=== PATIENT | female | born 1950 | race Hispanic/Latino ===

== ENCOUNTER 2019-09-17 10:05 | Observation (INO) | payer OTHER ==
[2019-09-16 11:15] VITALS: BP 150/72
[2019-09-17] VITALS (27 sets, daily range): BP systolic 12–169; BP diastolic 51–82
[~2019-09-17] VITALS: Ht 151.1 cm; Wt 55.7 kg
[2019-09-17] MEDS: CEFAZOLIN SODIUM 1 GM VIAL IVP SCH ×2 (05:00→14:00)
[~2019-09-17 10:05] MED LIST: AMLO5TAB9 PO; CALC-190 PO; EZET1TAB17 PO; FLUT16H NASAL; HYDR12.54 PO; LEVO75TA4 PO; MONT10TA21 PO; MULT-1192 PO; OMEP40CA13 PO; TOPI25TA42 PO; [UNRECOGNIZED DRUG - CODE] PO
[2019-09-17] MEDS ORDERED: LACTATED RINGERS 1000ML 1,000 ML IV ONE (11:25)
[2019-09-17] MEDS ORDERED: CHOL100046 PO (12:06)
[2019-09-17] MEDS ORDERED: PREG50 PO (12:09)
[2019-09-17] MEDS ORDERED: LEVO50TA6 PO (12:11)
[2019-09-17] MEDS ORDERED: GABA-529 PO (12:14)
[2019-09-17] MEDS ORDERED: LIDOCAINE PF 2% 5ML ABBOJECT ONE (13:12)
[2019-09-17] MEDS ORDERED: PROPOFOL 10 MG/ML 20ML VIAL IV ONE (13:12)
[2019-09-17] MEDS ORDERED: ONDANSETRON HCL 4 MG/2 ML VIAL ONE ×3 (13:12→18:05)
[2019-09-17] MEDS ORDERED: DEXAMETHASONE SOD PHOSPHATE 10MG/ML 1ML VIAL ONE (13:12)
[2019-09-17] MEDS ORDERED: GLYCOPYRROLATE 1 MG/5 ML SYRINGE ONE (13:13)
[2019-09-17] MEDS ORDERED: ROCURONIUM 10MG/1ML SYR 10 MG/ML ML ONE (13:13)
[2019-09-17] MEDS ORDERED: MIDAZOLAM HCL 1 MG/ML 2ML VIAL ONE (13:13)
[2019-09-17] MEDS ORDERED: NEOSTIGMINE 5MG/5ML SYR IV ONE (13:13)
[2019-09-17] MEDS ORDERED: FENTANYL CITRATE PF 50 MCG/1 ML 5ML AMP IV ONE (13:14)
[2019-09-17] MEDS ORDERED: ROPIVACAINE 0.5% 5MG/ML 30ML IJ ONE (13:16)
[2019-09-17] MEDS ORDERED: NALOXONE HCL 0.4 MG/1 ML ML ONE ×2 (15:24→16:31)
[2019-09-17] MEDS ORDERED: HYDRALAZINE HCL 20 MG/ML VIAL ONE (16:22)
[2019-09-17] MEDS ORDERED: ONDANSETRON HCL 4 MG/2 ML VIAL IVP PRN (19:45)
[2019-09-17] MEDS ORDERED: ACETAMINOPHEN-CODEINE 300/30MG TAB PO PRN (19:45)
--- NOTE | 2019-09-17 19:45 | NUR ---
REPORT GIVEN TO ARVIN CARR AT 1947, PT AAOX3 , CURRENTLY NO C/O PAIN TO RT SHOULDER. PT ABLE TO AMBULATE TO RESTROOM, VOIDED 3 TIMES. PT ABLE TO TOLERATE FLUIDS. VITALS STABLE, DRESSING TO RT SHOULDER HAS SCANT QUARTER SIZE AMOUNT OF BLOOD. NO OOZING OR HEMATOMA INCISION SITE. PT TRANSFERRED UP TO FLOOR VIA WHEEL CHAIR. AT SIDE WITH PERSONAL BELONGINGS. ON ARRIVAL PT IN PLACED IN BED, IV FLUIDS KVO, PATENT. PT STABLE AND RESTING, NO DISTRESS.
[2019-09-17] MEDS: ACETAMINOPHEN-CODEINE 300/30MG TAB PO PRN (23:43)
[2019-09-18] VITALS: BP 128/74
[2019-09-18] MEDS: ACETAMINOPHEN-CODEINE 300/30MG TAB PO PRN ×2 (03:34→10:15)
[2019-09-18 04:00] VITALS: BP 130/68
[2019-09-18] MEDS: CEFAZOLIN SODIUM 1 GM VIAL IVP SCH (04:46)
[2019-09-18 08:02] VITALS: BP 123/65
--- NOTE | 2019-09-18 11:45 | NUR ---
PT D/C HOME USING TEACH BACK TECHNIQUE RE; FOLLOW UP WITH DR MINDY LOAIZA ON 09/23/19 AT 0830 AND CALL TELEPHONE NUMNER [phone] Discharge Instructions for Open Rotator Cuff Repair You had a procedure called open rotator cuff repair. The rotator cuff consists of the muscles and tendons that surround your shoulder. The rotator cuff keeps the top of your upper arm bone (humerus) securely in the shoulder joint. Your doctor made an incision near your shoulder blade and repaired the torn muscles or tendons in your shoulder. Here are instructions to follow when caring for your arm at home. Activity Man leaning over with back straight, supporting himself on back of chair with one hand. Other arm is hanging from shoulder with arrows showing arm moving in ho-chunk. After surgery, rest your arm and relax for the rest of day. If you had general anesthesia (were put to sleep for the procedure), dont operate power tools or machinery, drink alcohol, or make any major decisions for at least 24 hours after surgery. Wear your sling, brace, or immobilizer, as directed. Dont drive a car until your doctor says its OK. And never drive while taking opioid pain medicine. Flex your wrist and wiggle your fingers often to help blood flow. Your doctor may recommend pendulum exercises after your surgery. If this recommendation is made: Hold on to the back of a chair, or lean on a tabletop with your healthy hand. Let your arm hang straight down toward the floor and use your torso to move your affected arm in a ho-chunk. First do 20 circles in one direction. Then do 20 circles in the other direction. Repeat the pendulum exercise every 2 hour(s) while you are awake. When you feel ready, increase the number of circles to 50 in each direction every 2 hour(s). Incision care Check your incision daily for redness, tenderness, or drainage. Dont soak in a bathtub, hot tub, or pool until your doctor says its OK. Wait several days after your surgery to start showering, or until your doctor says it's OK. Then shower as needed. Carefully wash your incision with soap and water. Gently pat it dry. Dont rub the incision, or apply creams or lotions. Your incision was closed using sutures, migdalia, or strips of tape. If you have sutures or migdalia, they may need to be removed up to 2 to 3 weeks after surgery. Allow the strips of tape to fall off on their own. Home care Use pain medicine as directed by your doctor. Apply an ice pack or bag of frozen peasor something similarwrapped in a thin towel on your shoulder to reduce swelling for the first 48 hours. Leave the ice pack on for 20 minutes; then take it off for 20 minutes. Repeat as needed. Take your temperature daily for 7 days after your surgery. Report a fever above 100.4F (38C) to your doctor. Fever may be a sign of infection. Follow-up care Follow up with your healthcare provider, or as advised. When to call your healthcare provider Call 911 right away if you have any of the following: Chest pain Shortness of breath Otherwise, call your healthcare provider right away if you have any of these: Increasing shoulder pain or pain not relieved by medicine Pain or swelling in the arm on the side of your surgery Numbness, tingling, coolness, or blue-garduno color of your arm or fingers on the side of your surgery Fever above 100.4F (38C), or as advised Shaking chills Drainage or oozing, redness, or warmth at the incision Nausea or vomiting. IV OUT INTACT, NO BLEEDING, PT WITH SLING, NO DISTRESS, AAOX3.
[2019-09-18 11:54] VITALS: BP 125/64
== END 2019-09-18 12:20 | disposition home or self-care (01) ==
LOC: DAH 10:05 → 3DH 10:06
PROVIDERS: ADMIT Orthopaedic Surgery; ATTEND Orthopaedic Surgery
DX: S46.011A Strain of muscle(s) and tendon(s) of the rotator cuff of right shoulder, initial encounter (principal); Z88.1 Allergy status to other antibiotic agents; Z88.8 Allergy status to other drugs, medicaments and biological substances; F41.9 Anxiety disorder, unspecified; F32.9 Major depressive disorder, single episode, unspecified; J44.9 Chronic obstructive pulmonary disease, unspecified; E11.9 Type 2 diabetes mellitus without complications; E78.00 Pure hypercholesterolemia, unspecified; I10 Essential (primary) hypertension; M79.7 Fibromyalgia; Z79.899 Other long term (current) drug therapy; X58.XXXA Exposure to other specified factors, initial encounter; Y93.89 Activity, other specified; Y92.89 Other specified places as the place of occurrence of the external cause
CPT/HCPCS: 23412; 24340; 82948 ×5; A4215 ×2; A4221; A4222; A4223; A4450; A4565; A4600; A4606; A4663; A4930 ×2; A5120; A6207; A6223; A6260; C1713 ×2; G0378 ×16; J0360; J0690; J1100; J2001; J2250; J2310 ×2; J2405 ×3; J2704; J2710; J2795; J3010; J3490; J7120

== ENCOUNTER 2021-08-11 06:21 | Day surgery (SDC) | payer OTHER ==
[2021-08-02 11:54] LABS: BASOPHILS % (AUTO) 0.5 % (0.0-5.0); EOSINOPHILS % (AUTO) 1.8 % (0.0-8.0); HEMATOCRIT 39.7 % (36-48); MEAN CORPUSCULAR HEMOGLOBIN 30.6 pg (27.0-33.0); MEAN CORPUSCULAR HGB CONC 32.5 g/dL (32.0-36.0); MEAN CORPUSCULAR VOLUME 94.3 fL (79-99); MONOCYTES % (AUTO) 10.1 % (3.0-13.0); NEUTROPHILS % (AUTO) 56.2 % (40.0-77.0); PLATELET COUNT (AUTO) 216 K/uL (130-400); RED BLOOD CELL COUNT(AUTO) 4.21 MIL/uL (4.00-5.50); RED CELL DISTRIBUTION WIDTH 13.2 % (11.0-15.5); WHITE BLOOD COUNT (AUTO) 9.6 K/uL (4.8-10.8)
[2021-08-02 12:01] LABS: CREATININE 0.8 mg/dL (0.5-1.5); POTASSIUM 3.8 mmol/L (3.5-5.1)
[2021-08-10 10:00] VITALS: BP 161/69
[2021-08-11] VITALS (16 sets, daily range): BP systolic 135–154; BP diastolic 61–76
[~2021-08-11] VITALS: Ht 149.9 cm; Wt 59.5 kg
[2021-08-11] MEDS: CEFAZOLIN SODIUM 1 GM VIAL IVP SCH ×2 (06:00→10:35)
[~2021-08-11 06:21] MED LIST changes: +AMLO-257 PO; -AMLO5TAB9 PO; -FLUT16H NASAL; +LEVO50TA6 PO; -LEVO75TA4 PO; -MONT10TA21 PO; -MULT-1192 PO; -OMEP40CA13 PO; +PREG50 PO; -TOPI25TA42 PO; -[UNRECOGNIZED DRUG - CODE] PO
[2021-08-11] MEDS: LACTATED RINGERS 1000ML 1,000 ML IV SCH ×2 (07:45→11:49)
[2021-08-11] MEDS ORDERED: DEXAMETHASONE SOD PHOSPHATE 10MG/ML 1ML VIAL ONE (10:03)
[2021-08-11] MEDS ORDERED: LIDOCAINE PF 100MG/5ML (2%) SYRINGE 5ML ONE (10:03)
[2021-08-11] MEDS ORDERED: ONDANSETRON 4MG INJ ONE (10:03)
[2021-08-11] MEDS ORDERED: SUCCINYLCHOLINE CHLORIDE 20 MG/ML 10 ML VIAL ONE (10:03)
[2021-08-11] MEDS ORDERED: GLYCOPYRROLATE 1 MG/5 ML SYRINGE ONE (10:04)
[2021-08-11] MEDS ORDERED: PROPOFOL 10 MG/ML 20ML VIAL IV ONE (10:04)
[2021-08-11] MEDS ORDERED: FENTANYL CITRATE PF 50 MCG/1 ML 2ML VIAL ONE (10:04)
[2021-08-11] MEDS ORDERED: NEOSTIGMINE 5MG/5ML SYR IV ONE (10:04)
[2021-08-11] MEDS ORDERED: MIDAZOLAM HCL 1 MG/ML 2ML VIAL ONE (10:06)
[2021-08-11] MEDS ORDERED: ROCURONIUM 10MG/1ML SYR 10 MG/ML ML ONE (10:07)
== END 2021-08-11 13:35 | disposition home or self-care (01) ==
LOC: DAH 06:21 → EDSTATUS 10:43 → DAH 13:35
PROVIDERS: ATTEND Orthopaedic Surgery
DX: S46.012A Strain of muscle(s) and tendon(s) of the rotator cuff of left shoulder, initial encounter (principal); M25.512 Pain in left shoulder; F41.9 Anxiety disorder, unspecified; F32.9 Major depressive disorder, single episode, unspecified; J44.9 Chronic obstructive pulmonary disease, unspecified; E11.9 Type 2 diabetes mellitus without complications; E78.00 Pure hypercholesterolemia, unspecified; I10 Essential (primary) hypertension; M79.7 Fibromyalgia; K21.9 Gastro-esophageal reflux disease without esophagitis; G89.18 Other acute postprocedural pain; X58.XXXA Exposure to other specified factors, initial encounter; Y93.89 Activity, other specified; Y92.89 Other specified places as the place of occurrence of the external cause; Y99.8 Other external cause status
CPT/HCPCS: 29827; 36415; 64415; 76942; 80048; 85025; 87635; 93005; A4215; A4221; A4222; A4223; A4248; A4565; A4649 ×4; A4663; A4930; A6260; C1713 ×2; C9803; J0330; J0690; J1100; J2001; J2250; J2405; J2704; J2710; J3010; J3490; J7120

== ENCOUNTER 2022-06-24 11:04 | Emergency (ER) | payer OTHER ==
[~2022-06-24] VITALS: Ht 149.9 cm; Wt 59.0 kg
[2022-06-24 11:18] VITALS: BP 189/85
[2022-06-24 11:55] LABS: BASOPHILS % (AUTO) 0.8 % (0.0-5.0); EOSINOPHILS % (AUTO) 1.2 % (0.0-8.0); HEMATOCRIT 42.1 % (36-48); LYMPHOCYTES % (AUTO) 27.9 % (21.0-51.0); MEAN CORPUSCULAR HEMOGLOBIN 29.6 pg (27.0-33.0); MEAN CORPUSCULAR VOLUME 89.8 fL (79-99); MONOCYTES % (AUTO) 8.1 % (3.0-13.0); NEUTROPHILS % (AUTO) 61.9 % (40.0-77.0); PLATELET COUNT (AUTO) 248 K/uL (130-400); RED BLOOD CELL COUNT(AUTO) 4.69 MIL/uL (4.00-5.50); RED CELL DISTRIBUTION WIDTH 13.9 % (11.0-15.5); WHITE BLOOD COUNT (AUTO) 7.5 K/uL (4.8-10.8)
[2022-06-24 11:58] LABS: APPEARANCE,URINE CLEAR (CLEAR); BILIRUBIN,URINE NEGATIVE (NEGATIVE); COLOR,URINE YELLOW (YELLOW); GLUCOSE, URINE (UA) NEGATIVE (NEGATIVE); KETONES,URINE NEGATIVE (NEGATIVE); LEUKOCYTE ESTERASE ,URINE NEGATIVE (NEGATIVE); NITRATE,URINE NEGATIVE (NEGATIVE); OCCULT BLOOD,URINE NEGATIVE (NEGATIVE); PH,URINE 7.5 (5.0-8.0); PROTEIN,URINE NEGATIVE (NEGATIVE); UROBILINOGEN,URINE 0.2 mg/dL (0.2-1.0)
[2022-06-24] MEDS ORDERED: MORPHINE 4 MG SYG IVP ONE (12:00)
[2022-06-24] MEDS ORDERED: ONDANSETRON 4MG INJ IVP ONE (12:00)
[2022-06-24] MEDS ORDERED: 0.9%NACL 1000ML 1,000 ML IV SCH (12:00)
[2022-06-24 12:08] LABS: CREATININE 0.8 mg/dL (0.5-1.5); POTASSIUM 3.8 mmol/L (3.5-5.1)
[2022-06-24 12:12] LABS: TOTAL PROTEIN, SERUM 8.4 g/dL (6.0-8.3)
[2022-06-24] MEDS ORDERED: TAMSULOSIN HCL 0.4 MG CAP.ER.24H PO SCH (12:30)
[2022-06-24] MEDS ORDERED: GABA300C PO (13:01)
[2022-06-24] MEDS ORDERED: NAPR-1180 PO (13:01)
[2022-06-24] MEDS ORDERED: CYCL10TA16 PO (13:01)
== END 2022-06-24 13:43 | disposition home or self-care (01) ==
LOC: EDH 11:04
DX: M54.59 Other low back pain (principal); K57.10 Diverticulosis of small intestine without perforation or abscess without bleeding; E11.9 Type 2 diabetes mellitus without complications; E78.00 Pure hypercholesterolemia, unspecified; I10 Essential (primary) hypertension; E03.9 Hypothyroidism, unspecified; Z88.1 Allergy status to other antibiotic agents; Z88.6 Allergy status to analgesic agent; Z79.899 Other long term (current) drug therapy; Z98.890 Other specified postprocedural states
CPT/HCPCS: 99284; 20552; 74176; 96374; 96375; 84484; 80053; 85025; 86140; 81003; 36415; J7030; J2405; J2270

== ENCOUNTER 2022-10-15 15:31 | Emergency (ER) | payer OTHER ==
[~2022-10-15] VITALS: Ht 149.9 cm; Wt 59.0 kg
[~2022-10-15 15:31] MED LIST changes: +CYCL10TA16 PO; +EZET-80 PO; -EZET1TAB17 PO; +GABA300C PO; +NAPR-1180 PO
[2022-10-15 15:35] VITALS: BP 124/66
== END 2022-10-15 16:00 | disposition left against medical advice (07) ==
LOC: EDH 15:31
DX: M54.50 Low back pain, unspecified (principal); Z53.21 Procedure and treatment not carried out due to patient leaving prior to being seen by health care provider

== ENCOUNTER 2022-10-18 11:08 | Emergency (ER) | payer OTHER ==
[~2022-10-18] VITALS: Ht 149.9 cm; Wt 59.0 kg
[2022-10-18] MEDS ORDERED: CYCL-309 PO (12:14)
[2022-10-18] MEDS ORDERED: GABA300C PO (12:14)
[2022-10-18] MEDS ORDERED: IBUP-1493 PO (12:14)
[2022-10-18 13:43] LABS: APPEARANCE,URINE CLEAR (CLEAR); BILIRUBIN,URINE NEGATIVE (NEGATIVE); COLOR,URINE YELLOW (YELLOW); GLUCOSE, URINE (UA) NEGATIVE (NEGATIVE); KETONES,URINE NEGATIVE (NEGATIVE); LEUKOCYTE ESTERASE ,URINE 500 Leu/uL (NEGATIVE); NITRATE,URINE NEGATIVE (NEGATIVE); OCCULT BLOOD,URINE NEGATIVE (NEGATIVE); PH,URINE 5.5 (5.0-8.0); PROTEIN,URINE NEGATIVE (NEGATIVE); UROBILINOGEN,URINE 0.2 mg/dL (0.2-1.0)
[2022-10-18 14:07] LABS: BACTERIA,URINE RARE /HPF (None Seen); MUCUS,URINE MANY LPF (None Seen); SQUAMOUS EPITHELIAL CELL,UR FEW /HPF (0-2)
[2022-10-18 14:57] VITALS: BP 144/69
== END 2022-10-18 15:00 | disposition home or self-care (01) ==
LOC: EDH 11:08
DX: M54.50 Low back pain, unspecified (principal); E11.9 Type 2 diabetes mellitus without complications; E78.00 Pure hypercholesterolemia, unspecified; I10 Essential (primary) hypertension; E03.9 Hypothyroidism, unspecified; Z88.1 Allergy status to other antibiotic agents; Z88.6 Allergy status to analgesic agent; Z79.899 Other long term (current) drug therapy; Z87.442 Personal history of urinary calculi; Z98.890 Other specified postprocedural states
CPT/HCPCS: 72110; 81001; 87088

== ENCOUNTER 2022-10-28 14:15 | Emergency (ER) | payer OTHER ==
[~2022-10-28] VITALS: Ht 149.9 cm; Wt 59.0 kg
[~2022-10-28 14:15] MED LIST changes: +CYCL-309 PO; +IBUP-1493 PO
[2022-10-28 14:16] VITALS: BP 129/58
[2022-10-28] MEDS ORDERED: TRIAMCINOLONE ACETONIDE 40 MG/ML 1ML VIAL INJ ONE (17:30)
[2022-10-28] MEDS ORDERED: ORPHENADRINE CITRATE 30 MG/ML ML IVP ONE (17:30)
[2022-10-28] MEDS ORDERED: KETOROLAC 30MG VIAL (30MG/ML) IM ONE (17:30)
== END 2022-10-28 18:35 | disposition home or self-care (01) ==
LOC: EDH 14:15
DX: M54.59 Other low back pain (principal); E11.9 Type 2 diabetes mellitus without complications; E78.00 Pure hypercholesterolemia, unspecified; I10 Essential (primary) hypertension; E03.9 Hypothyroidism, unspecified; Z88.8 Allergy status to other drugs, medicaments and biological substances; Z88.6 Allergy status to analgesic agent; Z79.899 Other long term (current) drug therapy; Z79.84 Long term (current) use of oral hypoglycemic drugs; Z87.442 Personal history of urinary calculi; Z98.890 Other specified postprocedural states
CPT/HCPCS: 99284; 20552; 96374; 96372; J3301; J1885; J2360

== ENCOUNTER 2022-11-20 10:23 | Observation (INO) | payer OTHER ==
[~2022-11-20] VITALS: Ht 149.9 cm; Wt 59.2 kg
[2022-11-20 11:15] LABS: CREATININE 0.9 mg/dL (0.5-1.5)
[2022-11-20 11:19] LABS: ALBUMIN 4.1 g/dL (3.5-5.0); TOTAL PROTEIN, SERUM 8.3 g/dL (6.0-8.3)
[2022-11-20 11:28] LABS: BASOPHILS % (AUTO) 0.3 % (0.0-5.0); EOSINOPHILS % (AUTO) 1.1 % (0.0-8.0); HEMATOCRIT 41.8 % (36-48); LYMPHOCYTES % (AUTO) 27.4 % (21.0-51.0); MEAN CORPUSCULAR HGB CONC 33.3 g/dL (32.0-36.0); MEAN CORPUSCULAR VOLUME 90.1 fL (79-99); MONOCYTES % (AUTO) 8.5 % (3.0-13.0); NEUTROPHILS % (AUTO) 62.2 % (40.0-77.0); PLATELET COUNT (AUTO) 257 K/uL (130-400); RED BLOOD CELL COUNT(AUTO) 4.64 MIL/uL (4.00-5.50); RED CELL DISTRIBUTION WIDTH 13.4 % (11.0-15.5); WHITE BLOOD COUNT (AUTO) 11.9 K/uL (4.8-10.8)
[2022-11-20 12:42] LABS: APPEARANCE,URINE CLEAR (CLEAR); BILIRUBIN,URINE NEGATIVE (NEGATIVE); COLOR,URINE COLORLESS (YELLOW); GLUCOSE, URINE (UA) NEGATIVE (NEGATIVE); KETONES,URINE NEGATIVE (NEGATIVE); LEUKOCYTE ESTERASE ,URINE 75 Leu/uL (NEGATIVE); NITRATE,URINE NEGATIVE (NEGATIVE); OCCULT BLOOD,URINE NEGATIVE (NEGATIVE); PH,URINE 6.5 (5.0-8.0); PROTEIN,URINE NEGATIVE (NEGATIVE); UROBILINOGEN,URINE 0.2 mg/dL (0.2-1.0)
[2022-11-20 12:57] LABS: BACTERIA,URINE RARE /HPF (None Seen); SQUAMOUS EPITHELIAL CELL,UR RARE /HPF (0-2)
[2022-11-20] MEDS ORDERED: HEPARIN 25,000 UNITS/250ML D5W 250 ML IV STA (14:09)
[2022-11-20 14:36] LABS: INR 0.93 (0.85-1.15); PROTHROMBIN TIME 9.8 SEC (9.6-11.6)
[2022-11-20] MEDS ORDERED: HEPARIN 5,000 UNIT VIAL IV SCH (15:00)
[2022-11-20] MEDS ORDERED: ENOXAPARIN SODIUM 60 MG/0.6 ML SQ ONE (15:13)
[2022-11-20] MEDS: ENOXAPARIN SODIUM 60 MG/0.6 ML SQ SCH (15:14)
[2022-11-20] MEDS: CEFTRIAXONE 2GM VIAL IVP SCH (15:17)
[2022-11-20] MEDS ORDERED: LACTULOSE 20 GM/30 ML UDCUP PO PRN (15:30)
[2022-11-20] MEDS ORDERED: HYDRALAZINE 20MG/ML VIAL IV PRN (15:30)
[2022-11-20] MEDS ORDERED: LABETALOL 20MG SYG IV PRN (15:30)
[2022-11-20] MEDS ORDERED: ONDANSETRON 4MG INJ IVP PRN (15:30)
[2022-11-20] MEDS ORDERED: ALBUTEROL 0.083% 2.5 MG/3 ML INH IH PRN (15:30)
[2022-11-20] MEDS: INSULIN HUMULIN R 100 UNIT/ML 3ML SQ SCH ×2 (16:30→20:17)
[2022-11-20] MEDS ORDERED: IOHEXOL 350 MG/ML 100ML INFUS..BTL IV ONE (17:29)
[2022-11-20 17:58] VITALS: BP 142/79
[2022-11-20 19:18] VITALS: BP 119/72
[2022-11-20] MEDS: FAMOTIDINE 20MG TAB PO SCH (21:20)
[2022-11-20] MEDS: ACETAMINOPHEN 325 MG TAB PO PRN (21:29)
[2022-11-21 00:18] VITALS: BP 141/73
[2022-11-21] MEDS: ZOLPIDEM TARTRATE 5 MG TAB PO SCH ×2 (00:53→20:39)
[2022-11-21 03:18] VITALS: BP 131/69
[2022-11-21 04:04] LABS: BASOPHILS % (AUTO) 0.3 % (0.0-5.0); EOSINOPHILS % (AUTO) 1.7 % (0.0-8.0); HEMATOCRIT 35.9 % (36-48); LYMPHOCYTES % (AUTO) 25.9 % (21.0-51.0); MEAN CORPUSCULAR HEMOGLOBIN 30.3 pg (27.0-33.0); MEAN CORPUSCULAR HGB CONC 33.4 g/dL (32.0-36.0); MEAN CORPUSCULAR VOLUME 90.7 fL (79-99); MONOCYTES % (AUTO) 8.8 % (3.0-13.0); NEUTROPHILS % (AUTO) 62.8 % (40.0-77.0); PLATELET COUNT (AUTO) 213 K/uL (130-400); RED BLOOD CELL COUNT(AUTO) 3.96 MIL/uL (4.00-5.50); RED CELL DISTRIBUTION WIDTH 13.3 % (11.0-15.5); WHITE BLOOD COUNT (AUTO) 9.2 K/uL (4.8-10.8)
[2022-11-21 04:29] LABS: CREATININE 0.9 mg/dL (0.5-1.5); MAGNESIUM 2.1 mg/dL (1.80-2.40); PHOSPHORUS 4.5 mg/dL (2.5-4.9); THYROID STIMULATING HORMONE 4.52 uIU/mL (0.36-3.74)
[2022-11-21 05:34] LABS: B-TYPE NATRIURETIC PEPTIDE 8 pg/mL (0-100)
[2022-11-21] MEDS: INSULIN HUMULIN R 100 UNIT/ML 3ML SQ SCH ×4 (06:36→20:39)
[2022-11-21 07:51] VITALS: BP 129/75
[2022-11-21] MEDS: FAMOTIDINE 20MG TAB PO SCH ×2 (09:38→20:38)
[2022-11-21] MEDS: ENOXAPARIN SODIUM 60 MG/0.6 ML SQ SCH (09:39)
[2022-11-21 11:06] VITALS: BP 127/69
[2022-11-21] MEDS ORDERED: MELO-108 PO (12:49)
[2022-11-21] MEDS ORDERED: FLUT1BLS3 IH (12:49)
[2022-11-21] MEDS ORDERED: 0.9%NACL 100ML 100 ML ONE (15:33)
[2022-11-21] MEDS: CEFTRIAXONE 2GM VIAL IVP SCH (15:34)
[2022-11-21] MEDS: ACETAMINOPHEN 325 MG TAB PO PRN (15:50)
[2022-11-21 16:04] VITALS: BP 134/71
[2022-11-21] MEDS ORDERED: BUSP5TAB3 PO (17:07)
[2022-11-21 20:00] VITALS: BP 124/59
[2022-11-21] MEDS: APIXABAN 5 MG TABLET PO SCH (20:39)
[2022-11-22] VITALS: BP 143/71
[2022-11-22 03:48] LABS: BASOPHILS % (AUTO) 0.3 % (0.0-5.0); EOSINOPHILS % (AUTO) 2.6 % (0.0-8.0); HEMATOCRIT 34.6 % (36-48); LYMPHOCYTES % (AUTO) 35.6 % (21.0-51.0); MEAN CORPUSCULAR HGB CONC 32.9 g/dL (32.0-36.0); MEAN CORPUSCULAR VOLUME 91.1 fL (79-99); NEUTROPHILS % (AUTO) 51.2 % (40.0-77.0); PLATELET COUNT (AUTO) 193 K/uL (130-400); RED CELL DISTRIBUTION WIDTH 13.5 % (11.0-15.5); WHITE BLOOD COUNT (AUTO) 7.3 K/uL (4.8-10.8)
[2022-11-22 04:00] VITALS: BP 135/75
[2022-11-22] MEDS: INSULIN HUMULIN R 100 UNIT/ML 3ML SQ SCH ×3 (05:09→16:30)
[2022-11-22] MEDS: FAMOTIDINE 20MG TAB PO SCH (07:48)
[2022-11-22] MEDS: APIXABAN 5 MG TABLET PO SCH (07:49)
[2022-11-22 08:00] VITALS: BP 127/70
[2022-11-22 12:00] VITALS: BP 127/70
[2022-11-22] MEDS: CEFTRIAXONE 2GM VIAL IVP SCH (15:30)
[2022-11-22] MEDS ORDERED: APIX5TAB PO (16:05)
[2022-11-22 16:40] VITALS: BP 134/74
== END 2022-11-22 19:45 | disposition home or self-care (01) ==
LOC: EDH 10:23 → EDHIP 15:07 → 2DH 17:39
PROVIDERS: ADMIT Internal Medicine; ATTEND Internal Medicine
DX: I26.99 Other pulmonary embolism without acute cor pulmonale (principal); Z20.822 Contact with and (suspected) exposure to COVID-19; J96.01 Acute respiratory failure with hypoxia; E11.9 Type 2 diabetes mellitus without complications; E78.00 Pure hypercholesterolemia, unspecified; I10 Essential (primary) hypertension; E03.9 Hypothyroidism, unspecified; N20.0 Calculus of kidney; G89.29 Other chronic pain; M54.9 Dorsalgia, unspecified; N39.0 Urinary tract infection, site not specified; Z79.01 Long term (current) use of anticoagulants; Z87.442 Personal history of urinary calculi; Z96.653 Presence of artificial knee joint, bilateral; Z86.16 Personal history of COVID-19; Z79.899 Other long term (current) drug therapy
CPT/HCPCS: 96374; 96372 ×2; 96375; 99285; 84484; 80053; 83880 ×2; 85025 ×3; 85378; 85610; 85730; 87088; 87804 ×2; 82948 ×9; 81001; 36415 ×3; 87635; 71045; 71270; 93005; 96376; 84443; 83735; 84100; 80048 ×2; 83605; 93306; 93356; 93970; 84145; G0378 ×52; C9803; J0696 ×2; J1650 ×2; J1644 ×2; Q9967

== ENCOUNTER → 2022-12-18 | Outpatient (CLI) | payer OTHER ==
[~2022-12-18] MED LIST changes: +APIX5TAB PO; +BUSP5TAB3 PO; -CYCL-309 PO; -CYCL10TA16 PO; +FLUT1BLS3 IH; -GABA300C PO; +MELO-108 PO; -NAPR-1180 PO
== END | disposition home or self-care (01) ==
LOC: RAH 13:56
PROVIDERS: ATTEND Family Medicine
DX: E04.1 Nontoxic single thyroid nodule (principal)
CPT/HCPCS: 76536

== ENCOUNTER 2024-05-24 10:55 | Emergency (ER) | payer OTHER ==
[~2024-05-24] VITALS: Ht 154.9 cm; Wt 61.2 kg
[2024-05-24 11:50] LABS: BASOPHILS # (AUTO) 0.04 K/uL (0.00-0.20); BASOPHILS % (AUTO) 0.5 % (0.0-5.0); EOSINOPHILS % (AUTO) 1.2 % (0.0-8.0); HEMATOCRIT 38.1 % (36-48); IMMATURE GRANULOCYTE ABSOLUTE 0.07 K/uL (0-1); LYMPHOCYTES # (AUTO) 1.2 K/uL (1.0-4.8); MEAN CORPUSCULAR HEMOGLOBIN 31.5 pg (27.0-33.0); MEAN CORPUSCULAR HGB CONC 33.3 g/dL (32.0-36.0); MEAN CORPUSCULAR VOLUME 94.5 fL (79-99); MONOCYTES # (AUTO) 0.5 K/uL (0.1-1.0); MONOCYTES % (AUTO) 5.5 % (3.0-13.0); NEUTROPHILS # (AUTO) 6.6 K/uL (1.8-7.7); PLATELET COUNT (AUTO) 218 K/uL (130-400); RED BLOOD CELL COUNT(AUTO) 4.03 MIL/uL (4.00-5.50); RED CELL DISTRIBUTION WIDTH 12.6 % (11.0-15.5); WHITE BLOOD COUNT (AUTO) 8.5 K/uL (4.8-10.8)
[2024-05-24 12:00] LABS: CREATININE 0.8 mg/dL (0.5-1.0); POTASSIUM 3.4 mmol/L (3.5-5.1)
[2024-05-24 12:08] LABS: ALBUMIN 3.7 g/dL (3.5-5.0); BILIRUBIN,TOTAL 0.8 mg/dL (0.2-1.0); TOTAL PROTEIN, SERUM 7.3 g/dL (6.0-8.3)
[2024-05-24] MEDS: MECLIZINE HCL 25 MG TABLET PO ONE (12:22)
[2024-05-24] MEDS: SOLU-MEDROL 125MG VIAL IVP ONE (12:22)
[2024-05-24] MEDS: 0.9%NACL 1000ML 1,000 ML IV ONE (12:22)
[2024-05-24] MEDS: POTASSIUM BICARB/CIT AC 25 MEQ TABLET.EFF PO ONE (12:39)
[2024-05-24] MEDS ORDERED: METH4TAB3 PO (13:12)
[2024-05-24] MEDS ORDERED: MECL-302 PO (13:12)
[2024-05-24 13:26] VITALS: BP 154/66; PULSE 68; RESP 18; O2SAT 95
[2024-05-24 13:40] LABS: ADD UA MICROSCOPIC YES; APPEARANCE,URINE HAZY (CLEAR); BILIRUBIN,URINE NEGATIVE (NEGATIVE); COLOR,URINE LIGHT-YELLOW (YELLOW); GLUCOSE, URINE (UA) NEGATIVE (NEGATIVE); KETONES,URINE 5 mg/dL (NEGATIVE); LEUKOCYTE ESTERASE ,URINE 75 Leu/uL (NEGATIVE); NITRATE,URINE NEGATIVE (NEGATIVE); OCCULT BLOOD,URINE NEGATIVE (NEGATIVE); PROTEIN,URINE NEGATIVE (NEGATIVE); UROBILINOGEN,URINE 0.2 mg/dL (0.2-1.0)
[2024-05-24 13:42] LABS: BACTERIA,URINE FEW /HPF (None Seen); MUCUS,URINE RARE LPF (None Seen); RBC,URINE 0-1 /HPF (0-1); SQUAMOUS EPITHELIAL CELL,UR RARE /HPF (0-2)
== END 2024-05-24 14:01 | disposition home or self-care (01) ==
LOC: EDH 10:55
DX: R55 Syncope and collapse (principal); R42 Dizziness and giddiness; H83.09 Labyrinthitis, unspecified ear; H91.8X9 Other specified hearing loss, unspecified ear; J44.9 Chronic obstructive pulmonary disease, unspecified; R53.1 Weakness; I10 Essential (primary) hypertension; E78.00 Pure hypercholesterolemia, unspecified; Z79.899 Other long term (current) drug therapy; Z98.890 Other specified postprocedural states; Z88.8 Allergy status to other drugs, medicaments and biological substances
CPT/HCPCS: 99285; 96374; 70450; 71045; 96361; 84484; 80053; 83690; 85025; 87086; 81001; 36415; 93005; J7030; J2919

== ENCOUNTER 2025-11-20 12:53 | Inpatient (IN) | payer OTHER ==
[~2025-11-20] VITALS: Ht 149.9 cm; Wt 55.0 kg
[~2025-11-20 12:53] MED LIST changes: +MECL-302 PO; +METH4TAB3 PO
--- NOTE | 2025-11-20 12:54 | NUR ---
PT IN ROOM
--- NOTE | 2025-11-20 13:06 | ERN ---
ED Note History of Present Illness Stated Complaint: CHEST PAIN Chief Complaint: Chest Pain Time Seen by MD: 12:56 Dictation: This is a 75-year-old female who presented to the emergency room with her complaining of chest pain and palpitations. The pain started today and she was resting when they began and she came into the ER for further evaluation she denied any fever chills or rigors. Pain is mostly in the precordial area. No diaphoresis or syncopal episode or presyncope. She apparently had a similar episode where she had to wear a device but she never got the results. No diarrhea vomitings. Temperature 97.9 pulse 154 respirations 20 blood pressure 127/90 with a pulse oximetry of 98% on room air Patient has a history of pulmonary embolus, hypertension, diabetes mellitus, hypothyroidism and nephrolithiasis. Allergies: Coded Allergies: clarithromycin (Unverified Allergy, Unknown, BLISTERS, 09/16/19) tramadol (Unverified Allergy, Unknown, 09/16/19) ITCHING Uncoded Allergies: AMITIZA (Allergy, Unknown, CHEST PAIN, 09/16/19) LEVQUIN (Allergy, Unknown, RASH, 09/16/19) STERIOD (Allergy, Unknown, FLU SYMPTOMS, 09/16/19) Home Meds Active Scripts Meclizine HCl (Meclizine HCl) 25 Mg Tablet, 25 MG PO TID for vertigo, #30 TAB 0 Refills Prov:VELMA DENNISP 05/24/24 Methylprednisolone (Medrol) 4 Mg Tab.ds.pk, 4 MG PO AD, #1 UNIT Prov:VELMA DENNISP 05/24/24 Apixaban (Eliquis) 5 Mg Tablet, 5 MG PO BID, #30 TAB Prov:JONATHAN JURADO NP 11/22/22 Apixaban (Eliquis) 5 Mg Tablet, 10 MG PO BID for 6 Days, #12 TAB Prov:JONATHAN JURADO MAINTENANCE AND CUSTODIAN SUPERVISOR 11/22/22 Ibuprofen (Motrin/Advil) 800 Mg Tab, 800 MG PO TID, #30 TAB Prov:JULIA BLANKENSHIP MD 10/18/22 Reported Medications Buspirone HCl (Buspirone HCl) 5 Mg Tablet, 1 TAB PO BID 11/21/22 Fluticasone/Umeclidin/Vilanter (Trelegy Ellipta 100-62.5-25) 1 Each Blst.w.dev, 1 PUFF IH QDP 11/21/22 Meloxicam (Meloxicam) 15 Mg Tablet, 1 TAB PO QDP for PAIN 11/21/22 Levothyroxine Sodium (Synthroid) 50 Mcg Tablet, 50 MCG PO ACBKFST, TAB 09/17/19 Pregabalin (Lyrica) 50 Mg Cap, 50 MG PO HS PRN for PAIN LEVEL 4 TO 6, CAP 09/17/19 Calcium Carbonate/Vitamin D3 (Calcium + Vitamin D Tablet) 1 Each Tablet, 1 EACH PO DAILY, TAB 09/13/16 Amlodipine Besylate (Amlodipine Besylate) 5 Mg Tablet, 5 MG PO DAILY, TAB 09/13/16 Ezetimibe/Simvastatin (Vytorin 10-20 mg Tablet) 1 Each Tablet, 1 EACH PO HS, TAB 09/13/16 Hydrochlorothiazide (Hydrochlorothiazide) 12.5 Mg Tablet, 12.5 MG PO DAILY, TAB 09/13/16 Past Medical History Past Medical History: Diabetes-Type II, High Cholesterol, Hypertension, Hypothyroid, Other Additional Past Medical Hx: KIDNEY STONES , BACKPAIN Surgical History: Other Surgical History Other: BILATERAL KNEE REPLACEMENT / BILATERAL SHOUDER ROTATOR CUFF Family History: Negative Social History: Negative History: Not Applicable RN Note Reviewed/Agreed w/PFSH: Yes Review of System Dictation Constitutional: Negative for fever,chills, and weight loss Eyes: Negative for injury, pain,redness, and discharge ENT: Negative for injury,pain or swelling Cardiovascular: Positive for chest pain, palpitations, Respiratory: Negative for shortness of breath, cough, and wheezing, Abdomen/GI: Negative for abdominal pain, nausea, vomiting, diarrhea, and constipation Back: Negative for injury and pain : Negative for injury, bleeding and discharge MS/Extremity: Negative for injury and deformity Skin: Negative for rash, and discoloration Neuro: Negative for headache, weakness, numbness, tingling, and seizure Psych: Negative for suicide ideation, homicidal ideation, and hallucinations Initial Vital Sign VS Vital Signs Date Time Temp Pulse Resp B/P (MAP) Pulse Ox O2 Delivery O2 Flow Rate FiO2 11/20/25 12:54 97.9 154 20 127/90 98 Room Air 0 11/20/25 15:49 21 Physical Exam Dictation General: awake, alert, NAD mildly anxious Head/Face: Normocephalic, atraumatic Eyes: PERRL, EOMI, vision at baseline ENT: oral cavity clear, TMs clear, no signs of infection Neck: Trachea midline, supple, no nuchal rigidity Cardiovascular: Irregularly irregular, No MRGs, no JVD Respiratory: CTAB, no respiratory distress, No rales or wheezes Abdomen: Soft, non-tender, non-distended, normal bowel sounds, no guarding or rebound. Skin: Warm, dry, normal turgor, no rash MS/Extremity: Pulses equal, no cyanosis, neurovascular intact, FROM Neuro: COAx4, GCS 15, strength 5/5, CN 2-12 intact, normal cerebellar exam, normal gait, Psych: Normal behavior, mood, and affect normal Extremities-trace edema without any palpable cords, Homans sign is negative Results (Laboratory/Radiology) Laboratory/Radiology Laboratory Tests Test 11/20/25 13:09 11/20/25 13:16 White Blood Count 7.0 K/uL (4.8-10.8) Red Blood Count 4.56 MIL/uL (4.00-5.50) Hemoglobin 14.2 g/dL (12.0-16.0) Hematocrit 41.8 % (36-48) Mean Corpuscular Volume 91.7 fL (79-99) Mean Corpuscular Hemoglobin 31.1 pg (27.0-33.0) Mean Corpuscular Hemoglobin Concent 34.0 g/dL (32.0-36.0) Red Cell Distribution Width 12.8 % (11.0-15.5) Platelet Count 280 K/uL (130-400) Mean Platelet Volume 10.7 fL (7.5-10.5) H Immature Granulocyte % (Auto) 0.3 % (0-1) Neutrophils (%) (Auto) 64.8 % (40.0-77.0) Lymphocytes (%) (Auto) 25.6 % (21.0-51.0) Monocytes (%) (Auto) 7.6 % (3.0-13.0) Eosinophils (%) (Auto) 1.3 % (0.0-8.0) Basophils (%) (Auto) 0.4 % (0.0-5.0) Neutrophils # (Auto) 4.5 K/uL (1.8-7.7) Lymphocytes # (Auto) 1.8 K/uL (1.0-4.8) Monocytes # (Auto) 0.5 K/uL (0.1-1.0) Eosinophils # (Auto) 0.09 K/uL (0.00-0.70) Basophils # (Auto) 0.03 K/uL (0.00-0.20) Absolute Immature Granulocyte (auto 0.02 K/uL (0-1) Nucleated Red Blood Cells 0.0 % (0.0-0.19) Sodium Level 140 mmol/L (136-145) Potassium Level 3.0 mmol/L (3.5-5.1) *L Chloride Level 103 mmol/L (101-111) Carbon Dioxide Level 26 mmol/L (21-32) Blood Urea Nitrogen 15 mg/dL (7-18) Creatinine 1.0 mg/dL (0.5-1.0) Glomerular Filtration Rate Calc 58 mL/min (>90) Random Glucose 203 mg/dL (70-105) H Total Calcium 8.5 mg/dL (8.5-10.1) Troponin I High Sensitivity 11 ng/L (4-50) Urine Color YELLOW (YELLOW) Urine Appearance CLOUDY (CLEAR) H Urine pH 6.5 (5.0-8.0) Urine Specific [place] 1.013 (1.001-1.031) Urine Protein NEGATIVE mg/dL (NEGATIVE) Urine Glucose (UA) NEGATIVE mg/dL (NEGATIVE) Urine Ketones NEGATIVE mg/dL (NEGATIVE) Urine Occult Blood NEGATIVE (NEGATIVE) Urine Nitrate NEGATIVE (NEGATIVE) Urine Bilirubin NEGATIVE mg/dL (NEGATIVE) Urine Urobilinogen 0.2 mg/dL (0.2-1.0) Urine Leukocyte Esterase 500 Enriqueta/uL (NEGATIVE) H Urine RBC 0-1 /HPF (0-1) Urine WBC 11-25 /HPF (0-1) H Urine Squamous Epithelial Cells RARE /HPF (0-2) Urine Bacteria RARE /HPF (None Seen) Urine Hyaline Casts 2-5 /LPF (0-1 /LPF) H Labs Reviewed?: Yes ED Course ED Course Orders Procedure Category Date Status Time Cbc With Differential LAB 11/20/25 Complete 12:57 Chest 1vw RAD 11/20/25 Resulted 12:57 12 Lead Ekg Tracing- EKG 11/20/25 Logged Technical 12:57 Troponin I High LAB 11/20/25 Complete Sensitivity 12:57 Urinalysis Profile LAB 11/20/25 Complete 12:57 Basic Metabolic Panel LAB 11/20/25 Complete 12:57 0.9% Nacl 500ml PHA 11/20/25 Complete Iv.Soln (Ns 500ml 13:30 Diltiazem 25mg Inj PHA 11/20/25 Complete (Cardizem 25mg Inj) 13:30 Culture Urine GHULAM 11/20/25 In Process 13:34 Metoprolol Tartrate PHA 11/20/25 Complete (Lopressor) 14:30 Metoprolol Tartrate PHA 11/20/25 Complete (Lopressor) 14:16 Potassium Bicarb/Cit PHA 11/20/25 Complete Ac 25meq (K-Lyte Ta 14:30 Diltiazem 125 Mg/25 PHA 11/20/25 In Process Ml Inj (Diltiazem 12 14:30 Ceftriaxone 1g Vial PHA 11/20/25 Complete (Rocephine 1g Inj) 15:30 Current Medications Medications (Trade) Dose Ordered Sig/Porfirio Route PRN Reason Start Time Stop Time Status Last Admin Dose Admin Ceftriaxone Sodium (ROCEphine 1G INJ) 1 gm ONCE ONCE IVPB 11/20/25 15:30 11/20/25 15:31 DC 11/20/25 15:47 Diltiazem HCl (CARDIzem 25MG INJ) 10 mg ONCE ONCE IVP 11/20/25 13:30 11/20/25 13:31 DC 11/20/25 13:25 Diltiazem HCl 125 mg/Sodium Chloride 125 ml @ 0 mls/hr PROTOCOL IV 11/20/25 14:30 12/20/25 14:29 11/20/25 15:16 Metoprolol Tartrate (loprESSOR) 5 mg ONCE ONCE IV 11/20/25 14:30 11/20/25 14:31 DC 11/20/25 15:09 Metoprolol Tartrate (loprESSOR) 5 mg STK-MED ONCE IV 11/20/25 14:16 11/20/25 14:16 DC Potassium Bicarbonate (K-Lyte Tablet Eff 25 Meq Tablet.eff) 50 meq ONCE ONCE PO 11/20/25 14:30 11/20/25 14:31 DC 11/20/25 15:36 Sodium Chloride 500 ml @ 0 mls/hr ONCE ONCE IV 11/20/25 13:30 11/20/25 13:31 DC 11/20/25 13:28 Vital Signs Date Time Temp Pulse Resp B/P (MAP) Pulse Ox O2 Delivery O2 Flow Rate FiO2 11/20/25 15:55 137 14 126/69 96 Room Air* 0 21 11/20/25 15:49 140 19 121/61 98 Room Air* 0 21 11/20/25 15:16 131 106/65 11/20/25 15:09 135 120/61 11/20/25 13:25 156 118/77 11/20/25 12:54 97.9 154 20 127/90 98 Room Air 0 HEART Score Response (Comments) Value History: Moderate suspicion (+1) 1 EKG: Normal 0 Age: > 65yrs (+2) 2 Risk Factors: 3+ risk factors (+2) 2 Initial Troponin: Normal limit (0) 0 HEART Score Risk: Mod Risk for MACE (4-6) Total 5 Medical Decision Making MDM Differential diagnosis: Unstable angina, ACS, chest wall pain Esophagitis, gastroesophageal reflux disease, hiatal hernia, gastritis, pericarditis, costochondritis, pleurisy This is a 75-year-old female who presented to the emergency room with her complaining of chest pain and palpitations. He started today and she was resting when they began and she came into the ER for further evaluation she denied any fever chills or rigors. Pain is mostly in the precordial area. No diaphoresis or syncopal episode or presyncope. She apparently had a similar episode where she had to wear a device but she never got the results. No diarrhea vomitings. Temperature 97.9 pulse 154 respirations 20 blood pressure 127/90 with a pulse oximetry of 98% on room air Patient has a history of pulmonary embolus, hypertension, diabetes mellitus, hypothyroidism and nephrolithiasis. 2:25 p.m. chest x-ray is negative for any acute changes. CBC is with a normal limits. BNP 7 is significant for a potassium of 3 glucose is slightly elevated. Troponins are negative. Twelve lead EKG showed AFib with RVR Patient was given gentle fluids initially a bolus of diltiazem was tried potassium repleted. Patient continued to be in AFib with RVR and diltiazem drip was initiated Urinalysis was reported with a positive leuko esterase and WBCs suggestive of a UTI I recommended admission to the hospital to intensive care unit for management of new onset atrial fibrillation with rapid ventricular response and chest pain as well as UTI. Patient and spouse agreeable 4:00 p.m. patient accepted by [facility] mid-level provider for [facility] hospitalist group for admission and further management Rationale: Tests considered and ordered secondary to shared decision making include: labs, ECG and radiology Previous outside records reviewed: Old ER visits. Risk of complication and/or morbidity or mortality of patient management: None Medications-Per medication reconciliation Need for hospitalization: Patient does meet criteria for hospitalization. Need for emergency major/minor surgery: No There are no social concerns with this patient. Prescription drug management Prescriptions will include symptomatic care Patient's prior external medical records from other ER visits were reviewed by me as indicated. Prior testing and results from previous visits were reviewed. Prior tests were taken into account with medical decision making and resource utilization, independent historian/historians were used to obtain complete medical history. I independently interpreted the test that were performed, results were reviewed by me and considered findings on radiology if ordered. Medical management and examination interpretation discussions were had by me with other qualified healthcare professionals as indicated for the patient's care. Problem List Problem List: (1) Atrial fibrillation with rapid ventricular response (2) Chest pain at rest (3) UTI (urinary tract infection) DX & DISP Disposition: Inpatient Decision to Admit Time: 03:00 Departure Impression: Primary Impression: Atrial fibrillation with rapid ventricular response Additional Impressions: Chest pain at rest, UTI (urinary tract infection) Condition: Stable Additional Instructions: Patient was informed of all the diagnostic labs and procedures conducted in the emergency room today and demonstrated understanding of the results. I personally reviewed and interpreted all the diagnostic exams performed in the ER today. The patient will be admitted to the hospital for further treatment and evaluation. Disposition-admit to facility Condition-stable/guarded Course-uncertain at this time Pain status-decreased Assessment-exam unchanged Admission Certification- I certify that the patients status is appropriate and is based on my best clinical judgment and the patient's condition as documented in the medical records Referrals: BROCK BRUNSON MD (PCP) JOSHUA SCHWARTZ MD Nov 20, 2025 13:06
[2025-11-20 13:24] LABS: APPEARANCE,URINE CLOUDY (CLEAR); GLUCOSE, URINE (UA) NEGATIVE (NEGATIVE); LEUKOCYTE ESTERASE ,URINE 500 Leu/uL (NEGATIVE); NITRATE,URINE NEGATIVE (NEGATIVE); OCCULT BLOOD,URINE NEGATIVE (NEGATIVE)
[2025-11-20 13:27] LABS: IMMATURE GRANULOCYTE ABSOLUTE 0.02 K/uL (0-1); NUCLEATED RED BLOOD CELLS 0.0 % (0.0-0.19); PLATELET COUNT (AUTO) 280 K/uL (130-400); RED BLOOD CELL COUNT(AUTO) 4.56 MIL/uL (4.00-5.50); RED CELL DISTRIBUTION WIDTH 12.8 % (11.0-15.5); WHITE BLOOD COUNT (AUTO) 7.0 K/uL (4.8-10.8)
[2025-11-20] MEDS: 0.9% NACL 500ML IV.SOLN 500 ML IV ONE (13:28)
[2025-11-20 13:34] LABS: ADD UA MICROSCOPIC YES
[2025-11-20 13:35] LABS: CREATININE 1.0 mg/dL (0.5-1.0); GLOMERULAR FILTR. RATE CALC 58.0 mL/min (>90); GLUCOSE,RANDOM 203.0 mg/dL (70-105); SODIUM SERUM 140.0 mmol/L (136-145); UREA NITROGEN, BLOOD 15.0 mg/dL (7-18)
[2025-11-20 13:43] LABS: SQUAMOUS EPITHELIAL CELL,UR RARE /HPF (0-2)
--- NOTE | 2025-11-20 14:48 | HMCIMG ---
EXAM: CR Chest, 1 View. CLINICAL HISTORY: SOB COMPARISON: None provided. FINDINGS: LUNGS: The lungs show no infiltrate or other acute finding. PLEURAL SPACES: No evidence of pleural effusion or pneumothorax. MEDIASTINUM: Cardiac size and mediastinal contours within normal limits. BONES: No aggressive appearing osseous lesion seen. IMPRESSION: No acute cardiopulmonary pathology is evident. /[place]
--- NOTE | 2025-11-20 16:22 | NUR ---
ROCEPHINE WAS STOPPED DUE TO PATIENT NOT TOLERATING WELL.
[2025-11-20 16:30] VITALS: PULSE 116; RESP 22; O2SAT 97
[2025-11-20] MEDS ORDERED: ARTIFICAL TEARS SOL 15 ML OP PRN (16:30)
[2025-11-20] MEDS ORDERED: BENZOCAINE/MENTH/CETYLPYRD CL 1 EACH LOZENGE MM PRN (16:30)
[2025-11-20] MEDS ORDERED: guaiFENesin-DM 200/20MG 10ML PO PRN (16:30)
[2025-11-20] MEDS ORDERED: MAG/ALUM/SIMETH 30 ML UDCUP PO PRN (16:30)
[2025-11-20] MEDS ORDERED: LIDOCAINE HCL 2% VISCOUS 30 ML, MAG/ALUM/SIMETH 30ML 30 ML, DICYCLOMINE HCL 20 MG PO PRN (16:30)
[2025-11-20] MEDS ORDERED: LACTULOSE 20 GM/30 ML UDCUP PO PRN (16:30)
--- NOTE | 2025-11-20 18:23 | EKG ---
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
--- NOTE | 2025-11-20 18:32 | NUR ---
CARDIZEM IS BEING INFUSED AT 11MG/HR
[2025-11-20] MEDS ORDERED: FAMOTIDINE 20MG TAB PO SCH (21:00)
[2025-11-20] MEDS: FAMOTIDINE 20MG VIAL IV SCH (22:20)
[2025-11-20] MEDS ORDERED: ENOXAPARIN SODIUM 40 MG/0.4 ML SYRINGE SQ SCH (22:30)
--- NOTE | 2025-11-20 22:34 | HP ---
[facility] HISTORY & PHYSICAL Date Patient Seen: Nov 20, 2025 Time of Visit: 22:27 Supervising Physician: Dr. Joel Moran Primary Care Physician: Dr. Kaitlin Balbuena Outpatient Specialists: [ ] Inpatient Consults: [ ] PROBLEM LIST: Atrial fibrillation with RVR, currently normal sinus rhythm on the monitor, on Cardizem drip, POA Hypertension, POA Hyperlipidemia, POA Hypothyroidism, POA Hypokalemia, POA Acute complicated cystitis, POA DM type 2, with hyperglycemia, POA PLAN: Admit to PCCU VS per unit protocol Heart healthy diet Continue Cardizem drip Complete bedrest for now Continue cardiac monitoring Keep potassium level above four, magnesium level above two Repeat BNP and magnesium level now Start patient on therapeutic Lovenox Cardiology consult in a.m. Bilateral SCDs Monitor chest pain, stat EKG and troponin level of with chest pain CBC, CMP, magnesium level daily Keep serum glucose less than 150 ISS and fingerstick per unit protocol Keep SBP less than 160 P.r.n. labetalol HPI: 75-year-old female with past medical history of hypertension, DM type 2, hypothyroidism, who presented to ED with complaint of chest pain with associated lightheadedness and found to have hypokalemia, atrial fibrillation with RVR. Patient was seen and examined in ED with family members present at bedside. Apparently patient has been having issues with chest pain that started today with associated lightheadedness. Apparently this is the 1st time that the patient experienced this problem. There is no associated cough, fever, confusion, or alteration in mental status. In ED stat EKG was done and showed atrial fibrillation with RVR, was subsequently placed on Cardizem drip and consulted Cardiology. Initial CBC showed no acute anemia or infection, her chemistry significant for potassium l evel of 3.0, repleted in ER, UA consistent with cystitis, was initiated on IV ceftriaxone. Chest x-ray unrevealing for any acute infiltrates or consolidation. At present patient is currently hemodynamically stable, normal sinus rhythm on the monitor, on Cardizem drip, denies any chest pain, shortness of breath, nausea or vomiting, phlegm, cough, or flu-like symptoms. Patient denies any smoking, alcohol intake, or illicit drug use PAST MEDICAL HX: see above PAST SURGICAL HX: noncontributory SOCIAL HISTORY: No tobacco, ETOH, or illicit drug use Coded Allergies: clarithromycin (Unverified Allergy, Unknown, BLISTERS, 09/16/19) tramadol (Unverified Allergy, Unknown, 09/16/19) ITCHING Uncoded Allergies: AMITIZA (Allergy, Unknown, CHEST PAIN, 09/16/19) LEVQUIN (Allergy, Unknown, RASH, 09/16/19) STERIOD (Allergy, Unknown, FLU SYMPTOMS, 09/16/19) REVIEW OF SYSTEMS: 12 point ROS reviewed with patient. Pertinent positives mentioned above. Otherwise negative. PHYSICAL EXAM: GENERAL: alert, weak, awake oriented x 3 HEENT: EOMI, Sclera non icteric, moist mucosa NECK: Supple, no JVD, trachea midline LUNGS: Clear breath sounds bilaterally. No wheezes HEART: Regular rate and rhythm. Normal S1 and S2, without murmurs ABD: Abdomen soft, nontender. Bowel sounds present EXT: No clubbing cyanosis or edema NEURO: Alert and oriented to person, follows commands Vital Signs (last 8hr) Date Time Temp Pulse Resp B/P (MAP) Pulse Ox O2 Delivery O2 Flow Rate FiO2 11/20/25 22:17 62 16 93/59 96 Room Air* 0 11/20/25 20:44 65 16 116/58 98 Room Air* 0 11/20/25 19:22 73 16 120/59 95 Room Air* 0 11/20/25 18:34 98.2 70 15 117/53 98 Room Air* 0 11/20/25 17:37 69 14 122/65 96 Room Air* 0 11/20/25 16:45 77 17 122/58 96 Room Air* 0 11/20/25 16:30 116 22 N/A Room Air 11/20/25 16:25 97.9 113 21 111/71 96 Room Air* 0 11/20/25 16:10 97.9 132 20 119/62 97 Room Air* 0 11/20/25 16:04 119 11 121/63 97 Room Air* 0 11/20/25 15:55 137 14 126/69 96 Room Air* 0 11/20/25 15:49 140 19 121/61 98 Room Air* 0 11/20/25 15:16 131 106/65 11/20/25 15:09 135 120/61 LABS: Hematology Labs: Test 11/20/25 13:09 Range/Units White Blood Count 7.0 4.8-10.8 K/uL Red Blood Count 4.56 4.00-5.50 MIL/uL Hemoglobin 14.2 12.0-16.0 g/dL Hematocrit 41.8 36-48 % Mean Corpuscular Volume 91.7 79-99 fL Mean Corpuscular Hemoglobin 31.1 27.0-33.0 pg Mean Corpuscular Hemoglobin Concent 34.0 32.0-36.0 g/dL Red Cell Distribution Width 12.8 11.0-15.5 % Platelet Count 280 130-400 K/uL Mean Platelet Volume 10.7 H 7.5-10.5 fL Immature Granulocyte % (Auto) 0.3 0-1 % Neutrophils (%) (Auto) 64.8 40.0-77.0 % Lymphocytes (%) (Auto) 25.6 21.0-51.0 % Monocytes (%) (Auto) 7.6 3.0-13.0 % Eosinophils (%) (Auto) 1.3 0.0-8.0 % Basophils (%) (Auto) 0.4 0.0-5.0 % Neutrophils # (Auto) 4.5 1.8-7.7 K/uL Lymphocytes # (Auto) 1.8 1.0-4.8 K/uL Monocytes # (Auto) 0.5 0.1-1.0 K/uL Eosinophils # (Auto) 0.09 0.00-0.70 K/uL Basophils # (Auto) 0.03 0.00-0.20 K/uL Absolute Immature Granulocyte (auto 0.02 0-1 K/uL Nucleated Red Blood Cells 0.0 0.0-0.19 % Chemistry Labs: Test 11/20/25 16:31 11/20/25 16:08 11/20/25 13:09 Range/Units Lactic Acid Level 1.9 0.8-2.5 mmol/L Troponin I High Sensitivity 11 4-50 ng/L Procalcitonin < 0.05 L 0.05-0.5 ng/mL Thyroid Stimulating Hormone (TSH) 0.69 # 0.36-3.74 uIU/mL Whole Blood Glucose 156 H 70-110 MG/DL Sodium Level 140 136-145 mmol/L Potassium Level 3.0 *L 3.5-5.1 mmol/L Chloride Level 103 101-111 mmol/L Carbon Dioxide Level 26 21-32 mmol/L Blood Urea Nitrogen 15 7-18 mg/dL Creatinine 1.0 0.5-1.0 mg/dL Glomerular Filtration Rate Calc 58 >90 mL/min Random Glucose 203 H 70-105 mg/dL Total Calcium 8.5 8.5-10.1 mg/dL DIAGNOSTICS / RADIOLOGY RESULTS: EXAM: CR Chest, 1 View. CLINICAL HISTORY: SOB COMPARISON: None provided. FINDINGS: LUNGS: The lungs show no infiltrate or other acute finding. PLEURAL SPACES: No evidence of pleural effusion or pneumothorax. MEDIASTINUM: Cardiac size and mediastinal contours within normal limits. BONES: No aggressive appearing osseous lesion seen. IMPRESSION: No acute cardiopulmonary pathology is evident. /Eastern PLAN NEURO: Minimize central acting medications as possible. Maintain fall precautions, adequate lighting during the day PULMONARY: Supplemental 02 as needed. Maintain aspiration precautions at all times CARDIOVASCULAR: Follow hemodynamics. Vital signs per facility protocol GI & NUTRITION: Continue with nutritional support. Continue stool softeners and laxatives as needed. KIDNEYS & ELECTROLYTES: Strict monitoring of intake, output and overall fluid balance. Avoid nephrotoxic medications to the extent possible. Medications to be dosed according to renal function. Monitor electrolytes and replace as needed ENDOCRINE: Maintain blood glucose between 100-180 at all times. Hypoglycemia protocol in place INFECTIOUS DISEASE: Trend temperature, WBC and procalcitonin level Follow cultures, deescalate antibiotics as soon as possible. Panculture if new onset fever ONCOLOGY/HEMATOLOGY/COAGULATION: Monitor for s/s of bleeding Monitor hemoglobin, coagulation studies as needed SKIN: Pressure ulcer prevention per facility protocol Specialty mattress ORTHO/REHAB: Continue PT/OT Prophylaxis: Continue GI and DVT prophylaxis Code Status: Full Resuscitation Disposition: TBD Supervising physician: [facility]EL[facility]varado [facility] Nov 20, 2025 22:34
[2025-11-20 23:41] LABS: CREATININE 0.7 mg/dL (0.5-1.0); GLOMERULAR FILTR. RATE CALC 89.0 mL/min (>90); GLUCOSE,RANDOM 112.0 mg/dL (70-105); SODIUM SERUM 141.0 mmol/L (136-145); UREA NITROGEN, BLOOD 12.0 mg/dL (7-18)
[2025-11-21 07:56] LABS: ASPARTATE AMINOTRANSFERASE 22.0 U/L (10-37); CREATININE 0.7 mg/dL (0.5-1.0); GLOMERULAR FILTR. RATE CALC 89.0 mL/min (>90); GLUCOSE,RANDOM 115.0 mg/dL (70-105); SODIUM SERUM 141.0 mmol/L (136-145); TOTAL PROTEIN, SERUM 7.1 g/dL (6.0-8.3); UREA NITROGEN, BLOOD 12.0 mg/dL (7-18)
--- NOTE | 2025-11-21 08:10 | NUR ---
DR. ALDO DINH CALLED AT THIS TIME, NO ANSWER
--- NOTE | 2025-11-21 09:40 | NUR ---
SARAH ROWAN WAS NOTIFIED ON POTASSIUM LEVEL OF 3.0
[2025-11-21] MEDS: PoTASSium chloRIDE 20MEQ ER 20 MEQ ERTAB PO ONE (10:09)
[2025-11-21] MEDS: ENOXAPARIN SODIUM 60 MG/0.6 ML SQ SCH (10:11)
[2025-11-21] MEDS: NITROGLYCERIN 0.4 MG SL TAB SL PRN (10:57)
--- NOTE | 2025-11-21 13:18 | NUR ---
REPORT GIVEN TO NURSE ALEENA
--- NOTE | 2025-11-21 13:20 | NUR ---
PT WAS ADMITTED TO ROOM 202 AND PT WAS ASSESSED. PT'S RHYTHM WAS INQUIRED AFTER CONNECTED TO TELEPAK AND LICENSED PLUMBER REPORTED IT AT [facility] AND [facility] IN THE 80'S. CALLED ER STAFF TO INQUIRE TO WHAT TIME THE PATIENT CONVERTED TO [facility] AND IT WAS NOTED AT 1737 YESTERDAY. PT WAS ADMITTED ON CARDIZEM DRIP AT [facility] AND DRIP WAS WEANED OFF RAPIDLY.
[2025-11-21 13:40] VITALS: BP 127/62; PULSE 69; RESP 16; TEMP 97.6
--- NOTE | 2025-11-21 15:30 | NUR ---
DR. MORLEY WAS PAGED AND ADVISED OF PT'S CONSULT THAT HAD BEEN ORDERED SINCE YESTERDAY AND THAT ACCORDING TO ER STAFF HE HAD BEEN NOTIFIED OF CONSULT YESTERDAY. DR. MORLEY STATED THAT HE WAS AT [facility] AND HE WOULD SEE THE PATIENT LATER TODAY. WILL ADVISE INCOMING NURSING STAFF.
[2025-11-21 16:00] VITALS: BP 125/60; PULSE 72; RESP 16; TEMP 98; O2SAT 96
[2025-11-21] MEDS ORDERED: AMLO5TAB6 PO (17:39)
[2025-11-21] MEDS ORDERED: CALC-909 PO (17:39)
[2025-11-21] MEDS ORDERED: BUSP5TAB3 PO (17:39)
[2025-11-21] MEDS ORDERED: EZET-59 PO (17:39)
[2025-11-21] MEDS ORDERED: LEVO50CA5 PO (17:39)
[2025-11-21] MEDS ORDERED: HYDR12.54 PO (17:39)
[2025-11-21] MEDS ORDERED: FLUT1BLS15 IH (17:39)
[2025-11-21 19:11] VITALS: PULSE 68; RESP 20; O2SAT 96
[2025-11-21 19:59] VITALS: BP 136/89; PULSE 68; RESP 20; TEMP 98.6
[2025-11-21 20:00] VITALS: O2SAT 96
--- NOTE | 2025-11-21 20:00 | NUR ---
DR. MORLEY HAS NOT BEEN IN TO SEE PT AND PATIENT IS AWARE OF DR. MORLEY STATING THAT HE WOULD BE IN TO SEE PT LATER TODAY.
--- NOTE | 2025-11-21 20:39 | CONS ---
[facility] CARDIOLOGY CONSULTATION NOTE Date Patient Seen: Nov 21, 2025 Time of Visit: 20:28 Requesting Physician: [ ] Reason for Consultation: [ ] History of Present Illness: [Been experiencing palpitations on and off for some time, and about three weeks ago she had an episode in which she had sustained rapid heart rate associated with weakness and shortness of breath. This recurred and she presented to the hospital, was found to be in atrial fibrillation with rapid ventricular response. Several years ago the patient had a rhythm monitor placed for evaluation of palpitations but never knew the results, did not return for follow-up. At that time she believes she was experiencing shortness of breath. With the current episode of palpitations the patient did experience weakness, lightheadedness, shortness of breath and retrosternal chest pressure and chest pain. That it felt like something heavy was sitting on her chest. ] Past Medical History: [Denies diabetes but glucose is over 200, admits to prior hypoglycemia-is clearly diabetic Denies hypertension but is on antihypertensive medications with elevated blood pressure Admits hypercholesterolemia Pulmonary embolus associated with COVID Anemia resulted from anticoagulation for pulmonary embolus, no GI evaluation, hematology evaluation (according to patient) did not produce a diagnosis ] Past Surgical History: [None ] Family History: [Both parents, a brother and a sister all had coronary disease and her siblings had bypasses ] Social History: [ accompanies her ] Habits: [Never] smoker. [Denies] alcohol consumption. [Denies] illicit drug use Home Meds: [Hydrochlorothiazide ] Current Meds: [ ] Review of Systems: CONST: [No fever, fatigue, or weight changes.] EYES: [No recent vision problems.] ENT: [No congestion, ear pain, or sore throat.] C/V: [Admits chest pain, admits palpitations, denies edema.] RESP: [No cough, congestion, wheezing, admits shortness of breath.] GI: [No abdominal pain, nausea, vomiting, constipation, or diarrhea.] : [No incontinence or dysuria.] SKIN: [No rash.] NEURO: [No headache, focal numbness or weakness, admits dizziness, or seizures.] PSYCH: [No depression or anxiety.] HEME: [No abnormal bruising or bleeding. History of anemia associated with anticoagulation] LYMPH: [No swollen glands.] Physical Examination: GENERAL: [No acute distress.] HEAD: [Normal with no signs of head trauma.] EYES: [PERRLA, EOMI, conjunctiva and sclera normal.] ENT: [Hearing grossly intact, normal oropharynx.] NECK: [Supple without JVD. There is no tenderness, lymphadenopathy, or masses. No thyromegaly. Normal carotid upstrokes without bruits.] LUNGS: [Clear breath sounds bilaterally. There are right basilar rales one third of the way up the chest. No wheezes, or rhonchi.] HEART: [Normal rate and rhythm. Normal S1 and S2 without mumurs, gallop or rub.] VASC: [Peripheral pulses +2 bilaterally.] ABD: [Bowel sounds normal, soft, nontender, no masses, no organomegaly. No audible bruits.] : [Not examined] LYMPH: [No lymphadenopathy noted.] EXT: [No clubbing, cyanosis or edema.] SKIN: [No rashes or lesions noted.] NEURO: [Awake, alert, and oriented x3. No focal sensory or strength deficits noted.] Vital Signs (last 8hr) Date Time Temp Pulse Resp B/P (MAP) Pulse Ox O2 Delivery O2 Flow Rate FiO2 11/21/25 19:59 98.6 68 20 136/89 98 Room Air 11/21/25 19:11 68 20 N/A Room Air 11/21/25 16:00 98.1 72 16 125/60 96 Room Air 21 11/21/25 16:00 96 Room Air* 0 21 11/21/25 13:41 66 119/60 11/21/25 13:40 97.5 69 16 127/62 97 Room Air 11/21/25 12:39 98.2 72 14 108/55 96 Room Air* 0 21 Laboratory: [ ] Hematology Labs: Test 11/20/25 13:09 Range/Units White Blood Count 7.0 4.8-10.8 K/uL Red Blood Count 4.56 4.00-5.50 MIL/uL Hemoglobin 14.2 12.0-16.0 g/dL Hematocrit 41.8 36-48 % Mean Corpuscular Volume 91.7 79-99 fL Mean Corpuscular Hemoglobin 31.1 27.0-33.0 pg Mean Corpuscular Hemoglobin Concent 34.0 32.0-36.0 g/dL Red Cell Distribution Width 12.8 11.0-15.5 % Platelet Count 280 130-400 K/uL Mean Platelet Volume 10.7 H 7.5-10.5 fL Immature Granulocyte % (Auto) 0.3 0-1 % Neutrophils (%) (Auto) 64.8 40.0-77.0 % Lymphocytes (%) (Auto) 25.6 21.0-51.0 % Monocytes (%) (Auto) 7.6 3.0-13.0 % Eosinophils (%) (Auto) 1.3 0.0-8.0 % Basophils (%) (Auto) 0.4 0.0-5.0 % Neutrophils # (Auto) 4.5 1.8-7.7 K/uL Lymphocytes # (Auto) 1.8 1.0-4.8 K/uL Monocytes # (Auto) 0.5 0.1-1.0 K/uL Eosinophils # (Auto) 0.09 0.00-0.70 K/uL Basophils # (Auto) 0.03 0.00-0.20 K/uL Absolute Immature Granulocyte (auto 0.02 0-1 K/uL Nucleated Red Blood Cells 0.0 0.0-0.19 % Chemistry Labs: Test 11/21/25 19:50 11/21/25 19:31 11/21/25 07:16 11/20/25 23:24 Range/Units Potassium Level 3.6 3.5-5.1 mmol/L Whole Blood Glucose 117 H 70-110 MG/DL Sodium Level 141 136-145 mmol/L Chloride Level 106 101-111 mmol/L Carbon Dioxide Level 29 21-32 mmol/L Blood Urea Nitrogen 12 7-18 mg/dL Creatinine 0.7 0.5-1.0 mg/dL Glomerular Filtration Rate Calc 89 >90 mL/min Random Glucose 115 H 70-105 mg/dL Hemoglobin A1c 6.0 4.0-6.0 % Estimated Average Glucose (eAG) 126 70-126 mg/dL Total Calcium 8.4 L 8.5-10.1 mg/dL Total Bilirubin 0.7 0.2-1.0 mg/dL Aspartate Amino Transf (AST/SGOT) 22 10-37 U/L Alanine Aminotransferase (ALT/SGPT) 21 12-78 U/L Alkaline Phosphatase 48 L 50-136 U/L Total Protein 7.1 6.0-8.3 g/dL Albumin 3.5 3.5-5.0 g/dL Magnesium Level 2.00 1.80-2.40 mg/dL Test 11/20/25 16:31 Range/Units Lactic Acid Level 1.9 0.8-2.5 mmol/L Troponin I High Sensitivity 11 4-50 ng/L Procalcitonin < 0.05 L 0.05-0.5 ng/mL Thyroid Stimulating Hormone (TSH) 0.69 # 0.36-3.74 uIU/mL Diagnostics / Radiology: [Copy/Paste Echos/Imaging Report here] Assessment: [My review of ECG does demonstrate atrial fibrillation with rapid ventricular response, and the patient was quite symptomatic with it. She is at risk for stroke as a diabetic hypertensive female over75 years old, Anuj Vasc score five and annual stroke risk 18%. ] Plan: [Check thyroid studies, evaluate chamber dimensions and ventricular function and pulmonary artery pressure my echocardiogram, treadmill stress Cardiolite for evaluation of chest pain and chest pressure associated with rapid heart rate, recommend GI evaluation during this hospitalization because of previous anemia associated with anticoagulation, then initiate long-term anticoagulation when safety is established. Arrhythmia suppression therapy, since the patient has longstanding history of palpitations and at least two episodes of what sounds like atrial fibrillation.] ISMAEL MORLEY MD Nov 21, 2025 20:38
[2025-11-21 23:33] VITALS: BP 124/71; PULSE 74; RESP 20; TEMP 98.5
[2025-11-22] VITALS (10 sets, daily range): BP systolic 129–150; BP diastolic 60–79; PULSE 67–89; RESP 16–20; TEMP 97.4–98.7; O2SAT 96–99
[2025-11-22 05:35] LABS: NUCLEATED RED BLOOD CELLS 0.0 % (0.0-0.19); PLATELET COUNT (AUTO) 224 K/uL (130-400); RED BLOOD CELL COUNT(AUTO) 3.94 MIL/uL (4.00-5.50); RED CELL DISTRIBUTION WIDTH 13.1 % (11.0-15.5); WHITE BLOOD COUNT (AUTO) 6.7 K/uL (4.8-10.8)
[2025-11-22 05:40] LABS: IMMATURE GRANULOCYTE ABSOLUTE 0.01 K/uL (0-1)
[2025-11-22 05:44] LABS: CREATININE 0.7 mg/dL (0.5-1.0); GLOMERULAR FILTR. RATE CALC 89.0 mL/min (>90); GLUCOSE,RANDOM 97.0 mg/dL (70-105); SODIUM SERUM 141.0 mmol/L (136-145); UREA NITROGEN, BLOOD 12.0 mg/dL (7-18)
--- NOTE | 2025-11-22 06:43 | NUR ---
RAD TREADMILL STRESS TEST. EXAM WAS EXPLAINED TO PT. PT STATED THAT SHE WOULD NOT TOLERATE THE TREADMILL DUE TO HX OF BILATERAL KNEE REPLACEMENTS. EXAM CHANGED TO LEXISCAN. DG
[2025-11-22] MEDS: REGADENOSON 0.4 MG/5 ML PF SYG IVP ONE (07:38)
[2025-11-22] MEDS: Fluticasone/Umeclidin/Vilanter (Trelegy Ellipta 200-62.5-25) IH SCH (08:28)
[2025-11-22] MEDS: amLODIPine 5 MG TAB PO SCH (08:29)
--- NOTE | 2025-11-22 08:30 | PN ---
PROGRESS NOTE PROBLEM LIST: * Paroxysmal atrial fibrillation with rapid ventricular response versus multifocal atrial tachycardia, prompting admission. * Chronic history of recurrent palpitations and irregular heart rate as per the patient's statement, evaluated in the past. * Hypertension. * Hyperlipoproteinemia. * Hypothyroidism. * Impressive family history for coronary artery disease. * Questionable history of COPD. * History of COVID with concomitant pulmonary embolization, initiated on anticoagulation at that time, anticoagulation discontinued because of anemia of questionable etiology. This patient presented to the hospital with recurrent symptoms of palpitations and chest discomfort. It is evident that she had a history of chest discomfort in the past that was felt to be related to gastroesophageal reflux disease and was started on omeprazole with improvement. On this presentation, the patient had significant symptoms of palpitations and chest discomfort, which she felt was quite different from her presentation with acid reflux symptoms. The patient had an evaluation in the Emergency Department and noted to have what was diagnosed as atrial fibrillation. The only record I see of an arrhythmia was an 8-second period on the surface electrocardiogram, which had two initial beats of sinus rhythm followed by either multifocal atrial tachycardia or atrial fibrillation of short duration. None of the other tracings were present for review. When we questioned the nursing staff, we could not identify any specific records that would reflect prolonged atrial fibrillation. During the hospitalization, the patient has been in sinus rhythm since she was brought to the floor. She has had no additional symptoms of chest discomfort or palpitations. Of note, as her chest discomfort was fairly bothersome and that is what prompted her admission. On assessing the patient this morning, she appears to be comfortable in no apparent distress. She is lying flat. The vital signs are stable. She is afebrile. The patient's blood pressure has been anywhere from 125-145 systolic range, and she is saturating at 99% on room air. The patient's exam reflects no jugular venous distention. The cardiac exam is normal. She has no pedal edema. This patient is currently maintained on simvastatin and ezetimibe, she is on BuSpar, amlodipine, levothyroxine, ceftriaxone, Lovenox at 50 mg b.i.d., famotidine, and additional p.r.n. medications. The patient's laboratory studies this morning revealed a sodium of 141, potassium of 4.0, chloride of 106, CO2 of 25, BUN of 12, creatinine of 0.7 with a GFR of 89, and the random glucose was 97. Hemoglobin A1c was elevated at 6.3. The magnesium is 2.1, and the calcium is 8.3. The TSH is felt to be benign, as was the free T4. The patient's white count is 6.7. The H and H have dropped from yesterday's 14.2 and 41.8 to 12.4 and 36.5 for questionable reasons. The indices are normal. At this point, I think the patient has a very high likelihood of having significant coronary artery disease given her multiple risk factors and her presentation. I think it is prudent to consider low-dose beta-blockers, and I will also ask Dr. Mendez to see the patient, as he had seen her in the past. I also recommended a 2D echocardiogram and a Lexiscan Cardiolite. TID: [id number] RECEIPT: [id number]
[2025-11-22] MEDS: VITAMIN D3 PO SCH (08:43)
[2025-11-22] MEDS: CALCIUM CARBONATE PO SCH (08:43)
--- NOTE | 2025-11-22 09:53 | NUR ---
DCP: HOME Pt reports she and Emeterio Taylor [phone] are and live apart. assists pt as needed and with transportation when needed. Pt lives at home alone. States she is still independent of her self care and her home, just does not like to drive. Pt has a walker with seat, w/c, shower chair and bsc if needed. No provider, HH or HD services at this time. PCP is Kaitlin Balbuena and uses [facility] for rx. Pt denies need for SNF wants to return home at tx.
--- NOTE | 2025-11-22 10:01 | PN ---
[facility] PROGRESS NOTE Date Patient Seen: Nov 22, 2025 Time of Visit: 09:56 Supervising Physician: ALDO DINH MD Primary Care Physician: Dr. Kaitlin Balbuena Outpatient Specialists: [ ] Inpatient Consults: [ ] PROBLEM LIST: Atrial fibrillation with RVR, currently normal sinus rhythm on the monitor, on Cardizem drip, POA Hypertension, POA Hyperlipidemia, POA Hypothyroidism, POA Hypokalemia, POA Acute complicated cystitis, POA DM type 2, with hyperglycemia, POA PLAN: Pending 2nd part of Stress test follow up Dr. Bonilla recommendations continue with rate control VS per unit protocol Heart healthy diet Continue cardiac monitoring Keep potassium level above four, magnesium level above two Keep SBP less than 160 INTERVAL HISTORY: Patient is a 75 year old lady came in to ED due to tachycardia and palpitations sensation, no hx of heart rate control medicines or anticoagulation therapy, patient has been seen by cardiology , stress test has been ordered and 1st part of test has been done this morning as per patient she felt really sick and tired with, plan is to have 2nd part during the day, she is awake,alert, well oriented on room air, 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 REVIEW OF SYSTEMS: 12 point ROS reviewed with patient. Pertinent positives mentioned above. Otherwise negative. PHYSICAL EXAM: GENERAL: alert, weak, awake oriented x 3 HEENT: EOMI, Sclera non icteric, moist mucosa NECK: Supple, no JVD, trachea midline LUNGS: Clear breath sounds bilaterally. No wheezes HEART: Regular rate and rhythm. Normal S1 and S2, without murmurs ABD: Abdomen soft, nontender. Bowel sounds present EXT: No clubbing cyanosis or edema NEURO: Alert and oriented to person, follows commands Vital Signs (last 8hr) Date Time Temp Pulse Resp B/P (MAP) Pulse Ox O2 Delivery O2 Flow Rate FiO2 11/22/25 08:15 97.3 78 18 150/60 97 Room Air 11/22/25 06:52 71 20 N/A Room Air 21 11/22/25 03:55 98.4 76 20 145/74 99 Room Air LABS: Hematology Labs: Test 11/22/25 03:51 Range/Units White Blood Count 6.7 4.8-10.8 K/uL Red Blood Count 3.94 L 4.00-5.50 MIL/uL Hemoglobin 12.4 12.0-16.0 g/dL Hematocrit 36.5 36-48 % Mean Corpuscular Volume 92.6 79-99 fL Mean Corpuscular Hemoglobin 31.5 27.0-33.0 pg Mean Corpuscular Hemoglobin Concent 34.0 32.0-36.0 g/dL Red Cell Distribution Width 13.1 11.0-15.5 % Platelet Count 224 130-400 K/uL Mean Platelet Volume 11.1 H 7.5-10.5 fL Immature Granulocyte % (Auto) 0.1 0-1 % Neutrophils (%) (Auto) 46.3 40.0-77.0 % Lymphocytes (%) (Auto) 40.1 21.0-51.0 % Monocytes (%) (Auto) 9.7 3.0-13.0 % Eosinophils (%) (Auto) 3.1 0.0-8.0 % Basophils (%) (Auto) 0.7 0.0-5.0 % Neutrophils # (Auto) 3.2 1.8-7.7 K/uL Lymphocytes # (Auto) 2.7 1.0-4.8 K/uL Monocytes # (Auto) 0.7 0.1-1.0 K/uL Eosinophils # (Auto) 0.21 0.00-0.70 K/uL Basophils # (Auto) 0.05 0.00-0.20 K/uL Absolute Immature Granulocyte (auto 0.01 0-1 K/uL Nucleated Red Blood Cells 0.0 0.0-0.19 % Chemistry Labs: Test 11/22/25 05:01 11/22/25 03:51 11/21/25 19:50 11/21/25 07:16 Range/Units Whole Blood Glucose 98 70-110 MG/DL Sodium Level 141 136-145 mmol/L Potassium Level 4.0 3.5-5.1 mmol/L Chloride Level 106 101-111 mmol/L Carbon Dioxide Level 25 21-32 mmol/L Blood Urea Nitrogen 12 7-18 mg/dL Creatinine 0.7 0.5-1.0 mg/dL Glomerular Filtration Rate Calc 89 >90 mL/min Random Glucose 97 70-105 mg/dL Total Calcium 8.3 L 8.5-10.1 mg/dL Magnesium Level 2.10 1.80-2.40 mg/dL Hemoglobin A1c 6.3 H 4.0-6.0 % Estimated Average Glucose (eAG) 134 H 70-126 mg/dL Thyroid Stimulating Hormone (TSH) 0.88 # 0.36-3.74 uIU/mL Free Thyroxine (T4) Direct 1.12 0.76-1.46 ng/dL Total Bilirubin 0.7 0.2-1.0 mg/dL Aspartate Amino Transf (AST/SGOT) 22 10-37 U/L Alanine Aminotransferase (ALT/SGPT) 21 12-78 U/L Alkaline Phosphatase 48 L 50-136 U/L Total Protein 7.1 6.0-8.3 g/dL Albumin 3.5 3.5-5.0 g/dL Test 11/20/25 16:31 Range/Units Lactic Acid Level 1.9 0.8-2.5 mmol/L Troponin I High Sensitivity 11 4-50 ng/L Procalcitonin < 0.05 L 0.05-0.5 ng/mL DIAGNOSTICS / RADIOLOGY RESULTS: [ ] PLAN NEURO: Minimize central acting medications as possible. Maintain fall precautions, adequate lighting during the day PULMONARY: Supplemental 02 as needed. Maintain aspiration precautions at all times CARDIOVASCULAR: Follow hemodynamics. Vital signs per facility protocol GI & NUTRITION: Continue with nutritional support. Continue stool softeners and laxatives as needed. KIDNEYS & ELECTROLYTES: Strict monitoring of intake, output and overall fluid balance. Avoid nephrotoxic medications to the extent possible. Medications to be dosed according to renal function. Monitor electrolytes and replace as needed ENDOCRINE: Maintain blood glucose between 100-180 at all times. Hypoglycemia protocol in place INFECTIOUS DISEASE: Trend temperature, WBC and procalcitonin level Follow cultures, deescalate antibiotics as soon as possible. Panculture if new onset fever ONCOLOGY/HEMATOLOGY/COAGULATION: Monitor for s/s of bleeding Monitor hemoglobin, coagulation studies as needed SKIN: Pressure ulcer prevention per facility protocol Specialty mattress ORTHO/REHAB: Continue PT/OT Prophylaxis: Continue GI and DVT prophylaxis Code Status: Full Resuscitation Disposition: TBD ATTESTATION BY PHYSICIAN Documentation assistance provided by a scribe, information recorded by the scribe was done at my direction and has been reviewed and validated by me." KEIRA DINH MD I personally scribed for ALDO DINH MD ([email or web address]) on 11/22/25 at 10:01. Electronically submitted by Kaley Brennan ([email or web address]). ALDO DINH MD Nov 22, 2025 10:01
--- NOTE | 2025-11-22 13:01 | NUR ---
Physical Therapy Endorsed to Nursing Patient ambulates well with no assistance required. Pt to be removed from PT roster
--- NOTE | 2025-11-22 18:15 | HMCSR ---
APPROVED REPORT EXAM: Two-dimensional and M-mode echocardiogram with Doppler and color Doppler. INDICATION ICD: Atrial Fibrillation 2D Dimensions RVDd 3.7 cm LVEF(%) 76.4 (>50%) LVED Vol(simp.) 75.0 mL IVSd 0.9 (0.7-1.1cm) FS(%) 45 % LVES Vol(simp.) 35.0 mL LVDd 4.6 (3.8-5.6cm) LA (2D) 3.6 (1.6-4.0cm) LVEF(%, simp.) 54 % PWd 0.9 (0.7-1.1cm) Ao Root(2D) 2.5 (2.0-3.7cm) LA ESV INDEX (BP) 29.38 mL/m2 LVDs 2.5 (2.5-4.0cm) LVOT diam 2.0 (1.8-2.4cm) Deformation Strain Apical 4 -16.7 % Apical 2 -18.5 % Apical 3 -19.8 % Global Strain -18.3 % M-Mode Dimensions EPSS 0.8 cm LA (MM) 3.5 (1.6-4.0cm) Ao Root(MM) 2.1 (2.0-3.7cm) Aortic Valve AoV Vmax 1.5 m/s Ao Peak GR 8.4 mmHg LVOT Vmax 1.0 m/s AoV VTI 0.3 m Ao Mean GR 4.7 mmHg LVOT VTI 0.22 m SAHIL (VMAX) 2.25 cm2 SAHIL (VTI) 2.1 cm2 Mitral Valve MV E Vmax 69.9 cm/s DECEL Time 100 ms MV A Vmax 99.3 cm/s P 1/2 T 58 ms E/A ratio 0.7 MVA (PHT) 3.8 cm2 TDI E/E' Medial 10.3 E/E' Lateral 12.0 Medial E' Peak V 6.76 cm/s Lateral E' Peak V 5.84 cm/s Pulmonary Valve PV Vmax 1.1 m/s PV VTI 0.26 m PV Mean GR 2.8 mmHg PV Peak GR 5.0 mmHg Tricuspid Valve TR Vmax 2.8 m/s RVSP 28.9 mmHg TR Peak GR 34.6 mmHg Left Ventricle The left ventricle is normal size. Global strain of-18%. There is normal left ventricular wall thickness. LVEF is 50-55%. Stage I diastolic dysfunction. Right Ventricle The right ventricle is normal size. The right ventricular systolic function is normal. Atria The left atrium size is normal. The right atrium size is normal. Aortic Valve The aortic valve is normal in structure. No aortic regurgitation is present. There is no aortic valvular stenosis. Mitral Valve The mitral valve is normal in structure. Mitral regurgitation is trace to mild. There is no mitral valve stenosis. Tricuspid Valve The tricuspid valve is normal in structure. There is trace tricuspid valve regurgitation noted. Pulmonic Valve The pulmonary valve is normal in structure. There is trivial pulmonic valvular regurgitation. Great Vessels The aortic root is normal in size. The IVC is normal in size and collapses >50% with inspiration. Pericardium There is no pericardial effusion. Conclusion LVEF is 50-55%. Stage I diastolic dysfunction.
--- NOTE | 2025-11-22 18:27 | CONS ---
CONSULT NOTE: HPI: 75-year-old female with past medical history of hypertension, DM type 2, hypothyroidism, who presented to ED with complaint of chest pain with associated lightheadedness and found to have hypokalemia, atrial fibrillation with RVR. Patient was seen and examined in ED with family members present at bedside. Apparently patient has been having issues with chest pain that started today with associated lightheadedness. Apparently this is the 1st time that the patient experienced this problem. There is no associated cough, fever, confusion, or alteration in mental status. In ED stat EKG was done and showed atrial fibrillation with RVR, was subsequently placed on Cardizem drip and consulted Cardiology. Initial CBC showed no acute anemia or infection, her chemistry significant for potassium le joel of 3.0, repleted in ER, UA consistent with cystitis, was initiated on IV ceftriaxone. Chest x-ray unrevealing for any acute infiltrates or consolidation. At present patient is currently hemodynamically stable, normal sinus rhythm on the monitor, on Cardizem drip, denies any chest pain, shortness of breath, nausea or vomiting, phlegm, cough, or flu-like symptoms. Patient denies any smoking, alcohol intake, or illicit drug use PAST MEDICAL HX: see above PAST SURGICAL HX: noncontributory SOCIAL HISTORY: No tobacco, ETOH, or illicit drug use Coded Allergies: clarithromycin (Unverified Allergy, Unknown, BLISTERS, 09/16/19) tramadol (Unverified Allergy, Unknown, 09/16/19) ITCHING Uncoded Allergies: AMITIZA (Allergy, Unknown, CHEST PAIN, 09/16/19) LEVQUIN (Allergy, Unknown, RASH, 09/16/19) STERIOD (Allergy, Unknown, FLU SYMPTOMS, 09/16/19) REVIEW OF SYSTEMS: 12 point ROS reviewed with patient. Pertinent positives mentioned above. Otherwise negative. PHYSICAL EXAM: GENERAL: alert, weak, awake oriented x 3 HEENT: EOMI, Sclera non icteric, moist mucosa NECK: Supple, no JVD, trachea midline LUNGS: Clear breath sounds bilaterally. No wheezes HEART: Regular rate and rhythm. Normal S1 and S2, without murmurs ABD: Abdomen soft, nontender. Bowel sounds present EXT: No clubbing cyanosis or edema NEURO: Alert and oriented to person, follows commands assessment History of DVT and PE in the past with the patient used to be on Eliquis which was stopped due to bleeding. Atrial fibrillation with RVR, currently normal sinus rhythm on the monitor, on Cardizem drip, POA Hypertension, POA Hyperlipidemia, POA Hypothyroidism, POA Hypokalemia, POA Acute complicated cystitis, POA DM type 2, with hyperglycemia, POA Plan 1. This patient hemoglobin is stable at 12.4 g/deciliter. 2. This patient will need anticoagulation. Patient was started on Lovenox 50 mg SQ twice daily. This patient may be could be changed to oral Eliquis 5 mg p.o. twice daily if it is okay with his cardiology 3. There was hypersegmented neutrophils. This patient to be started on folic acid 1 mg p.o. daily and vitamin B12 1000 mcg p.o. daily. GRISELDA TORRES MD Nov 22, 2025 18:27
--- NOTE | 2025-11-22 18:41 | HMCSR ---
APPROVED REPORT Height: 4 ft 11in Weight: 117 lbs TEST INDICATIONS Chest Pressure The imaging protocol used to acquire images was Rest Tc-99m/stress Tc-99m 1 day Consent: The procedure was explained and understood by the patient. Informerd consent was witnessed by Ronal Girard RN First, low dose rest was performed then high dose stress. RESTING DATA: The resting ekg shows: NSR Rest SPECT myocardial perfusion imaging was performed in supine position minutes following the intravenous injection of 11 mCi of Tc-99 Sestamibi. Time of rest injection: 11:40:51 Date: 11/22/2025 Time of rest imagin:40:51 Date: 11/22/2025 PHARMACOLOGIC STRESS: Pharmacologic stress test was performed by injecting regadenoson 0.4 mg IV push followed by the intravenous injection of 29 mCi of Tc-99 Sestamibi. Time of stress injection: 07:49: Date: 11/22/2025 Time of stress imagin:30: Date: 11/22/2025 Heart Rate at time of stress injection: 71 bpm. The images were gated to evaluate regional wall motion and calculate left ventricular ejection fraction. STRESS DETAILS Reason for Termination: Infusion complete Stress Symptoms: Dyspnea;Upset Stomach Max HR Achieved: 106 bpm % of APMHR Achieved: 87 Max Blood Pressure: 177/58 mmHg Stress ECG: NSR Conclusion Septal infarct Fixed apical defect possibly normal variant apical defect versus infarct LV ejection fraction of 77% Normal LV wall motion Normal LV size at rest and stress No evidence of increased lung uptake
[2025-11-22] MEDS: EZETIMIBE 10 MG TAB PO SCH (21:43)
[2025-11-23] VITALS (10 sets, daily range): BP systolic 108–154; BP diastolic 61–83; PULSE 70–98; RESP 16–20; TEMP 97.8–98.2; O2SAT 96–98
[2025-11-23 07:05] LABS: NUCLEATED RED BLOOD CELLS 0.0 % (0.0-0.19); PLATELET COUNT (AUTO) 208 K/uL (130-400); RED BLOOD CELL COUNT(AUTO) 3.95 MIL/uL (4.00-5.50); RED CELL DISTRIBUTION WIDTH 13.1 % (11.0-15.5); WHITE BLOOD COUNT (AUTO) 6.9 K/uL (4.8-10.8)
[2025-11-23 07:16] LABS: IMMATURE GRANULOCYTE ABSOLUTE 0.01 K/uL (0-1)
--- NOTE | 2025-11-23 08:02 | PN ---
[facility] PROGRESS NOTE Date Patient Seen: Nov 23, 2025 Time of Visit: 07:45 Problem List: * Paroxysmal atrial fibrillation with rapid ventricular response versus multifocal atrial tachycardia, prompting admission. * Chronic history of recurrent palpitations and irregular heart rate as per the patient's statement, evaluated in the past. * Hypertension. * Hyperlipoproteinemia. * Hypothyroidism. * Impressive family history for coronary artery disease. * Questionable history of COPD. * History of COVID with concomitant pulmonary embolization, initiated on anticoagulation at that time, anticoagulation discontinued because of anemia of questionable etiology. Interval History: Pt evaluated in her room. Negative troponin levels this admission, rhythm/rate controlled on current medication regiment. Chronic anticoagulation recommended by hematology. Currently not anemic. GI evaluation would be prudent given her hx of anemia with prior anticoagulation. She will obviously need chronic anticoagulation to reduce stroke risk given her high CHADS VASC score. Pt d enies any overnight episodes of chest pain or pressure. Thyroid function WNL,continues on supplement. She still has some BP elevation, we will add losartan to regimen and stop her amlodipine. Physical Examination: GENERAL: [No acute distress.] HEAD: [Normal with no signs of head trauma.] EYES: [PERRLA, EOMI, conjunctiva and sclera normal.] ENT: [Hearing grossly intact, normal oropharynx.] NECK: [Supple without JVD. There is no tenderness, lymphadenopathy, or masses. No thyromegaly. Normal carotid upstrokes without bruits.] LUNGS: [Clear breath sounds bilaterally. There are right basilar rales one third of the way up the chest. No wheezes, or rhonchi.] HEART: [Normal rate and rhythm. Normal S1 and S2 without mumurs, gallop or rub.] VASC: [Peripheral pulses +2 bilaterally.] ABD: [Bowel sounds normal, soft, nontender, no masses, no organomegaly. No audible bruits.] : [Not examined] LYMPH: [No lymphadenopathy noted.] EXT: [No clubbing, cyanosis or edema.] SKIN: [No rashes or lesions noted.] NEURO: [Awake, alert, and oriented x3. No focal sensory or strength deficits noted.] Laboratory: [ ] Hematology Labs: Test 11/23/25 06:58 Range/Units White Blood Count 6.9 4.8-10.8 K/uL Red Blood Count 3.95 L 4.00-5.50 MIL/uL Hemoglobin 12.2 12.0-16.0 g/dL Hematocrit 37.4 36-48 % Mean Corpuscular Volume 94.7 79-99 fL Mean Corpuscular Hemoglobin 30.9 27.0-33.0 pg Mean Corpuscular Hemoglobin Concent 32.6 32.0-36.0 g/dL Red Cell Distribution Width 13.1 11.0-15.5 % Platelet Count 208 130-400 K/uL Mean Platelet Volume 9.9 7.5-10.5 fL Immature Granulocyte % (Auto) 0.1 0-1 % Neutrophils (%) (Auto) 51.9 40.0-77.0 % Lymphocytes (%) (Auto) 34.4 21.0-51.0 % Monocytes (%) (Auto) 10.2 3.0-13.0 % Eosinophils (%) (Auto) 2.8 0.0-8.0 % Basophils (%) (Auto) 0.6 0.0-5.0 % Neutrophils # (Auto) 3.5 1.8-7.7 K/uL Lymphocytes # (Auto) 2.4 1.0-4.8 K/uL Monocytes # (Auto) 0.7 0.1-1.0 K/uL Eosinophils # (Auto) 0.19 0.00-0.70 K/uL Basophils # (Auto) 0.04 0.00-0.20 K/uL Absolute Immature Granulocyte (auto 0.01 0-1 K/uL Nucleated Red Blood Cells 0.0 0.0-0.19 % Chemistry Labs: Test 11/23/25 06:29 11/22/25 03:51 11/21/25 19:50 Range/Units Whole Blood Glucose 92 70-110 MG/DL Sodium Level 141 136-145 mmol/L Potassium Level 4.0 3.5-5.1 mmol/L Chloride Level 106 101-111 mmol/L Carbon Dioxide Level 25 21-32 mmol/L Blood Urea Nitrogen 12 7-18 mg/dL Creatinine 0.7 0.5-1.0 mg/dL Glomerular Filtration Rate Calc 89 >90 mL/min Random Glucose 97 70-105 mg/dL Total Calcium 8.3 L 8.5-10.1 mg/dL Magnesium Level 2.10 1.80-2.40 mg/dL Hemoglobin A1c 6.3 H 4.0-6.0 % Estimated Average Glucose (eAG) 134 H 70-126 mg/dL Thyroid Stimulating Hormone (TSH) 0.88 # 0.36-3.74 uIU/mL Free Thyroxine (T4) Direct 1.12 0.76-1.46 ng/dL Diagnostics / Radiology: [Copy/Paste Echos/Imaging Report here] Impression and Plan: Negative troponin this admission in setting of afib with rvr, stress test negative for reversible defect, preserved EF and normal left atrial size indicating relatively low risk for acute infarct and new onset of hemodynamic change likely related to rhythm disturbance Rate/rhythm control obtained with toprol xl 25mg po bid Add losartan/hctz 50/12.5mg po daily Stop amlodipine Eliquis 5mg po bid once cleared by GI for initiation Needs GI evaluation given hx of anemia on chronic anticoagulation/GERD symptoms Continue statin Continue CHERRIE Jewell AGACNP Nov 23, 2025 08:02
[2025-11-23] MEDS: LOSARTAN/HYDROCHLOROTHIAZIDE 50-12.5MG TABLET PO SCH (09:00)
--- NOTE | 2025-11-23 16:29 | CONS ---
GASTROENTEROLOGY CONSULTATION NOTE Date of Consultation: Nov 23, 2025 Time of Consultation: 16:29 History of Present Illness: [[This is a 75-year-old female patient who presented to the emergency room with complaints of chest pain and palpitations. To with past medical history for pulmonary embolus, hypertension, diabetes mellitus, hypothyroidism and nephrolithiasis. The patient also has past history of anemia, and we were consulted for initiation of Eliquis. Patient's last EGD and colonoscopy was on 08/22/2023 was found to have gastritis, with no active bleeding. Colonoscopy findings significant for to seasonal polyps, mild diverticulosis of left colon. Pathology showed tubular adenomas x2. 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 Proximal small bowel with small, flat, bluish venous dilatation suggestive of Phlebectasia with no active bleeding. No melena or active bleeding noted on this exam. Patient was last seen at our office on 11/22/2023 and patient preferred to follow up. Patient's WBC of 6.9, hemoglobin 12.2, platelets 208. For calcium of 8.3. Phosphatase of 48. ] Review of Systems: CONSTITUTIONAL: No malaise or change in sensation of wellbeing. ENMT: No rhinorrhea, otorrhea, sinus pain, ear ache. CARDIOVASCULAR: No angina, palpitations, orthopnea or paroxysmal dyspnea. RESPIRATORY: No SOB. GASTROINTESTINAL: No abdominal pain, nausea, vomiting, diarrhea, hematemesis, melena or change in the patient's habitual bowel movements consistency/number. GENITOURINARY: No dysuria, hematuria or change in bladder continence. MUSCULOSKELETAL: No new muscle pain or decrease in muscular strength. No new joint swelling, redness or tenderness. SKIN: No new rash. Past Medical History: [ ] Past Surgical History: [ ] Past Social History: [ ] Family History: [ ] Coded Allergies: clarithromycin (Unverified Allergy, Unknown, BLISTERS, 09/16/19) tramadol (Unverified Allergy, Unknown, 09/16/19) ITCHING Uncoded Allergies: AMITIZA (Allergy, Unknown, CHEST PAIN, 09/16/19) LEVQUIN (Allergy, Unknown, RASH, 09/16/19) STERIOD (Allergy, Unknown, FLU SYMPTOMS, 09/16/19) Physical Exam: GEN: Awake, alert, oriented in person, time and place, and in no acute distress. HEENT: No rhinorrhea. Oral pharyngeal mucosa is pink, moist and within normal limits. CHEST: Lung auscultation revealed normal breath sounds bilaterally. CARDIAC:Heart sounds are regular. ABD: Soft, non-tender and not distended. No peritoneal signs on palpation. Normal bowel sounds. Last bm EXT: No cyanosis or clubbing. No edema. SKIN: Intact. No rashes. NEURO: Alert and oriented to name, place and person.No focal motor deficits. Normal speech. Vital Sign (Last 24 Hours) 11/22/25 11/23/25 11/23/25 20:00 07:04 11:43 Temp 97.9 Pulse 74 Resp 16 B/P (MAP) 127/66 Pulse Ox 97 O2 Delivery Room Air O2 Flow Rate 0 FiO2 21 Intake & Output (last 24hrs) 11/22/25 11/22/25 11/23/25 15:00 23:00 07:00 Intake Total 240 ml 530.0 ml 240 ml Output Total 600 ml 600 ml 800 ml Balance -360 ml -70.0 ml -560 ml Laboratory: [ ] Laboratory: Test 11/23/25 06:58 11/23/25 06:29 11/22/25 03:51 11/21/25 19:50 Range/Units White Blood Count 6.9 4.8-10.8 K/uL Red Blood Count 3.95 L 4.00-5.50 MIL/uL Hemoglobin 12.2 12.0-16.0 g/dL Hematocrit 37.4 36-48 % Mean Corpuscular Volume 94.7 79-99 fL Mean Corpuscular Hemoglobin 30.9 27.0-33.0 pg Mean Corpuscular Hemoglobin Concent 32.6 32.0-36.0 g/dL Red Cell Distribution Width 13.1 11.0-15.5 % Platelet Count 208 130-400 K/uL Mean Platelet Volume 9.9 7.5-10.5 fL Immature Granulocyte % (Auto) 0.1 0-1 % Neutrophils (%) (Auto) 51.9 40.0-77.0 % Lymphocytes (%) (Auto) 34.4 21.0-51.0 % Monocytes (%) (Auto) 10.2 3.0-13.0 % Eosinophils (%) (Auto) 2.8 0.0-8.0 % Basophils (%) (Auto) 0.6 0.0-5.0 % Neutrophils # (Auto) 3.5 1.8-7.7 K/uL Lymphocytes # (Auto) 2.4 1.0-4.8 K/uL Monocytes # (Auto) 0.7 0.1-1.0 K/uL Eosinophils # (Auto) 0.19 0.00-0.70 K/uL Basophils # (Auto) 0.04 0.00-0.20 K/uL Absolute Immature Granulocyte (auto 0.01 0-1 K/uL Nucleated Red Blood Cells 0.0 0.0-0.19 % Whole Blood Glucose 92 70-110 MG/DL Sodium Level 141 136-145 mmol/L Potassium Level 4.0 3.5-5.1 mmol/L Chloride Level 106 101-111 mmol/L Carbon Dioxide Level 25 21-32 mmol/L Blood Urea Nitrogen 12 7-18 mg/dL Creatinine 0.7 0.5-1.0 mg/dL Glomerular Filtration Rate Calc 89 >90 mL/min Random Glucose 97 70-105 mg/dL Total Calcium 8.3 L 8.5-10.1 mg/dL Magnesium Level 2.10 1.80-2.40 mg/dL Hemoglobin A1c 6.3 H 4.0-6.0 % Estimated Average Glucose (eAG) 134 H 70-126 mg/dL Thyroid Stimulating Hormone (TSH) 0.88 # 0.36-3.74 uIU/mL Free Thyroxine (T4) Direct 1.12 0.76-1.46 ng/dL Current Medications Medications (Trade) Dose Ordered Sig/Porfirio Route PRN Reason Start Time Stop Time Status Last Admin Dose Admin Acetaminophen (TYLenol 325MG TAB) 650 mg Q4H PRN PO MILD PAIN (1-3) 11/20/25 16:30 12/20/25 16:29 11/23/25 15:33 650 MG Acetaminophen (TYLenol 325MG TAB) 650 mg Q6H PRN PO TEMPERATURE GREATER THAN 101.5 11/20/25 16:30 12/20/25 16:29 Al Hydroxide/Mg Hydroxide (MAALox PLUS 30ML) 30 ml Q6H PRN PO INDIGESTION 11/20/25 16:30 12/20/25 16:29 Amlodipine Besylate (NorvASC 5MG TAB) 5 mg DAILY PO 11/22/25 09:00 11/23/25 07:53 DC 11/22/25 08:29 5 MG Artificial Tears (Artificial Tears) 1 drop Q2H PRN OP DRY EYES 11/20/25 16:30 12/20/25 16:29 Benzocaine (Cepacol Sore Throat Lozenge) 1 each Q2H PRN MM SORE THROAT 11/20/25 16:30 12/20/25 16:29 Buspirone HCl (BUspar) 5 mg BID PO 11/22/25 09:00 12/22/25 08:59 11/23/25 09:00 5 MG Ceftriaxone Sodium (ROCEphine 1G INJ) 1 gm Q24H IVPB 11/21/25 21:00 12/01/25 20:59 11/22/25 21:43 1 GM Diltiazem HCl 125 mg/Sodium Chloride 125 ml @ 0 mls/hr PROTOCOL IV 11/20/25 14:30 12/20/25 14:29 11/21/25 13:41 9 MLS/HR Diphenhydramine HCl (BENAdryl CAP) 25 mg Q4H PRN PO MILD ITCHING/RASH 11/20/25 16:30 12/20/25 16:29 Diphenhydramine HCl (BENAdryl INJ) 25 mg Q6H PRN IV SEVERE ITCHING/RASH 11/20/25 16:30 12/20/25 16:29 Docusate Sodium (COLace 100MG CAP) 100 mg BID PRN PO CONSTIPATION 11/20/25 16:30 12/20/25 16:29 Enoxaparin Sodium (Lovenox 60mg) 50 mg BID SQ 11/21/25 09:00 12/21/25 08:59 11/23/25 09:01 50 MG Enoxaparin Sodium (Lovenox) 40 mg DAILY SQ 11/20/25 22:30 11/20/25 22:25 DC EZETIMIBE (Zetia) 10 mg HS PO 11/22/25 21:00 12/22/25 20:59 11/22/25 21:43 10 MG Famotidine (Pepcid 20mg Vial) 20 mg DAILY@2100 IV 12/20/25 21:00 12/20/25 20:59 11/22/25 21:43 20 MG Famotidine (Pepcid 20mg Tab) 20 mg BID PO 11/20/25 21:00 12/20/25 20:59 UNV Guaifenesin (RobiTUSSin SUGAR-FREE 100 MG/ 5 ML UDCUP) 200 mg Q4H PRN PO COUGH 11/20/25 16:30 12/20/25 16:29 Guaifenesin/ Dextromethorphan (RobiTUSSin DM 200/20MG 10ML) 10 ml Q4H PRN PO COUGH 11/20/25 16:30 11/23/25 07:53 DC HCTZ/Losartan Potassium (Hyzaar 50-12.5 Tablet) 1 tab DAILY PO 11/23/25 09:00 12/23/25 08:59 11/23/25 09:00 1 TAB Home Med (Home Medication) (Calcium Carbonate/ Vitamin... DAILY PO 11/22/25 09:00 12/22/25 08:59 Home Med (Home Medication) Fluticasone/ Umeclidin/ Vilan... DAILY IH 11/22/25 09:00 12/22/25 08:59 Ipratropium [place] (AtrovENT UD) 0.5 mg [id number] IH 11/20/25 18:00 11/20/25 16:45 DC Ipratropium [place] (AtrovENT UD) 0.5 mg [id number] PRN IH SHORTNESS OF BREATH/WHEEZING 11/20/25 17:00 12/20/25 17:59 Lactulose (Constulose 20gm/ 30ml Udcup) 20 gm BID PRN PO CONSTIPATION 11/20/25 16:30 12/20/25 16:29 Levothyroxine Sodium (SYNTHroid 50MCG TAB) 50 mcg SYN PO 11/22/25 06:30 12/22/25 06:29 11/23/25 05:46 50 MCG Lidocaine HCl/Al Hydroxide/Mg Hydroxide/ Dicyclomine HCl 20ML OR AD MAALOX P... Q6H PRN PO HEARTBURN 11/20/25 16:30 12/20/25 16:29 Metoprolol Succinate (TopROL XL) 25 mg DAILY PO 11/22/25 09:00 1/21/26 08:59 11/23/25 09:00 25 MG Nitroglycerin (Nitrostat) 0.4 mg PROTOCOL PRN SL CHEST PAIN 11/20/25 16:30 12/20/25 16:29 11/21/25 10:57 0.4 MG Ondansetron HCl (zoFRAN 4MG INJ) 4 mg Q6H PRN IV NAUSEA/VOMITING 11/20/25 16:30 12/20/25 16:29 Polyethylene Glycol (MIRalax 3350 17 GM POWD.PACK) 17 gm DAILY PRN PO CONSTIPATION 11/20/25 16:30 12/20/25 16:29 Simvastatin (zoCOR) 20 mg HS PO 11/22/25 21:00 12/22/25 20:59 11/22/25 21:43 20 MG Diagnostics / Radiology: [COPY/PASTE HERE IF NO REPORTS PLEASE DELETE SECTION] Assessment: [History of anemia Atrial Fibrillation with RVR HTN Hypothyroidism Diabetes ] Plan: Case discussed with Dr. Chavez [GI endoscopic intervention recommended at this time Patient may start Eliquis per cardiology recommendations Recommend trending hemoglobin daily. Please call with questions, concerns, and change in clinical status, and any signs of overt gi bleed JAYANT GARCIA Nov 23, 2025 16:29
--- NOTE | 2025-11-23 16:29 | CONS ---
COLORECTAL CONSULTATION NOTE Date of Consultation: Nov 23, 2025 Time of Consultation: 16:26 History of Present Illness: [This is a 75-year-old female patient who presented to the emergency room with complaints of chest pain and palpitations. To with past medical history for pulmonary embolus, hypertension, diabetes mellitus, hypothyroidism and nephrolithiasis. The patient also has past history of anemia, and we were consulted for initiation of Eliquis. Patient's last EGD and colonoscopy was on 08/22/2023 was found to have gastritis, with no active bleeding. Colonoscopy findings significant for to seasonal polyps, mild diverticulosis of left colon. Pathology showed tubular adenomas x2. 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 Proximal small bowel with small, flat, bluish venous dilatation suggestive of Phlebectasia with no active bleeding. No melena or active bleeding noted on this exam. Patient was last seen at our office on 11/22/2023 and patient preferred to follow up. Patient's WBC of 6.9, hemoglobin 12.2, platelets 208. For calcium of 8.3. Phosphatase of 48. ] Review of Systems: CONSTITUTIONAL: No malaise or change in sensation of wellbeing. ENMT: No rhinorrhea, otorrhea, sinus pain, ear ache. CARDIOVASCULAR: No angina, palpitations, orthopnea or paroxysmal dyspnea. RESPIRATORY: No SOB. GASTROINTESTINAL: No abdominal pain, nausea, vomiting, diarrhea, hematemesis, melena or change in the patient's habitual bowel movements consistency/number. GENITOURINARY: No dysuria, hematuria or change in bladder continence. MUSCULOSKELETAL: No new muscle pain or decrease in muscular strength. No new joint swelling, redness or tenderness. SKIN: No new rash. Past Medical History: pulmonary embolus, HTN, diabetes, PAST SURGICAL HX: noncontributory Coded Allergies: clarithromycin (Unverified Allergy, Unknown, BLISTERS, 09/16/19) tramadol (Unverified Allergy, Unknown, 09/16/19) ITCHING Uncoded Allergies: AMITIZA (Allergy, Unknown, CHEST PAIN, 09/16/19) LEVQUIN (Allergy, Unknown, RASH, 09/16/19) STERIOD (Allergy, Unknown, FLU SYMPTOMS, 09/16/19) Physical Exam: GEN: Awake, alert, oriented in person, time and place, and in no acute distress. HEENT: No sinus tenderness. Tympanic membranes were not examined. No rhinorrhea. Oral pharyngeal mucosa is pink, moist and within normal limits. Neck is supple with no cervical lymphadenopathy, thyromegaly or JVD. CHEST: Inspection, palpation and percussion of the chest were unremarkable. Lung auscultation revealed normal breath sounds bilaterally. CARDIAC: PMI is within normal limits. Heart sounds are regular. Normal S1, S2. No gallop or murmur. ABD: Soft, non-tender and not distended. No peritoneal signs on palpation. No organomegaly. Normal bowel sounds. EXT: No cyanosis or clubbing. No edema. SKIN: Intact. No rashes. JOINTS: No evidence of synovitis or acute arthritis. NEURO: Alert and oriented to name, place and person. Cranial nerve examination is unremarkable. No focal motor deficits. Normal speech. Gait is normal. Strength is normal. Vital Sign (Last 24 Hours) 11/22/25 11/23/25 11/23/25 20:00 07:04 11:43 Temp 97.9 Pulse 74 Resp 16 B/P (MAP) 127/66 Pulse Ox 97 O2 Delivery Room Air O2 Flow Rate 0 FiO2 21 Intake & Output (last 24hrs) 11/22/25 11/22/25 11/23/25 15:00 23:00 07:00 Intake Total 240 ml 530.0 ml 240 ml Output Total 600 ml 600 ml 800 ml Balance -360 ml -70.0 ml -560 ml Laboratory: [ ] Laboratory: Test 11/23/25 06:58 11/23/25 06:29 11/22/25 03:51 11/21/25 19:50 Range/Units White Blood Count 6.9 4.8-10.8 K/uL Red Blood Count 3.95 L 4.00-5.50 MIL/uL Hemoglobin 12.2 12.0-16.0 g/dL Hematocrit 37.4 36-48 % Mean Corpuscular Volume 94.7 79-99 fL Mean Corpuscular Hemoglobin 30.9 27.0-33.0 pg Mean Corpuscular Hemoglobin Concent 32.6 32.0-36.0 g/dL Red Cell Distribution Width 13.1 11.0-15.5 % Platelet Count 208 130-400 K/uL Mean Platelet Volume 9.9 7.5-10.5 fL Immature Granulocyte % (Auto) 0.1 0-1 % Neutrophils (%) (Auto) 51.9 40.0-77.0 % Lymphocytes (%) (Auto) 34.4 21.0-51.0 % Monocytes (%) (Auto) 10.2 3.0-13.0 % Eosinophils (%) (Auto) 2.8 0.0-8.0 % Basophils (%) (Auto) 0.6 0.0-5.0 % Neutrophils # (Auto) 3.5 1.8-7.7 K/uL Lymphocytes # (Auto) 2.4 1.0-4.8 K/uL Monocytes # (Auto) 0.7 0.1-1.0 K/uL Eosinophils # (Auto) 0.19 0.00-0.70 K/uL Basophils # (Auto) 0.04 0.00-0.20 K/uL Absolute Immature Granulocyte (auto 0.01 0-1 K/uL Nucleated Red Blood Cells 0.0 0.0-0.19 % Whole Blood Glucose 92 70-110 MG/DL Sodium Level 141 136-145 mmol/L Potassium Level 4.0 3.5-5.1 mmol/L Chloride Level 106 101-111 mmol/L Carbon Dioxide Level 25 21-32 mmol/L Blood Urea Nitrogen 12 7-18 mg/dL Creatinine 0.7 0.5-1.0 mg/dL Glomerular Filtration Rate Calc 89 >90 mL/min Random Glucose 97 70-105 mg/dL Total Calcium 8.3 L 8.5-10.1 mg/dL Magnesium Level 2.10 1.80-2.40 mg/dL Hemoglobin A1c 6.3 H 4.0-6.0 % Estimated Average Glucose (eAG) 134 H 70-126 mg/dL Thyroid Stimulating Hormone (TSH) 0.88 # 0.36-3.74 uIU/mL Free Thyroxine (T4) Direct 1.12 0.76-1.46 ng/dL Current Medications Medications (Trade) Dose Ordered Sig/Porfirio Route PRN Reason Start Time Stop Time Status Last Admin Dose Admin Acetaminophen (TYLenol 325MG TAB) 650 mg Q4H PRN PO MILD PAIN (1-3) 11/20/25 16:30 12/20/25 16:29 11/23/25 15:33 650 MG Acetaminophen (TYLenol 325MG TAB) 650 mg Q6H PRN PO TEMPERATURE GREATER THAN 101.5 11/20/25 16:30 12/20/25 16:29 Al Hydroxide/Mg Hydroxide (MAALox PLUS 30ML) 30 ml Q6H PRN PO INDIGESTION 11/20/25 16:30 12/20/25 16:29 Amlodipine Besylate (NorvASC 5MG TAB) 5 mg DAILY PO 11/22/25 09:00 11/23/25 07:53 DC 11/22/25 08:29 5 MG Artificial Tears (Artificial Tears) 1 drop Q2H PRN OP DRY EYES 11/20/25 16:30 12/20/25 16:29 Benzocaine (Cepacol Sore Throat Lozenge) 1 each Q2H PRN MM SORE THROAT 11/20/25 16:30 12/20/25 16:29 Buspirone HCl (BUspar) 5 mg BID PO 11/22/25 09:00 12/22/25 08:59 11/23/25 09:00 5 MG Ceftriaxone Sodium (ROCEphine 1G INJ) 1 gm Q24H IVPB 11/21/25 21:00 12/01/25 20:59 11/22/25 21:43 1 GM Diltiazem HCl 125 mg/Sodium Chloride 125 ml @ 0 mls/hr PROTOCOL IV 11/20/25 14:30 12/20/25 14:29 11/21/25 13:41 9 MLS/HR Diphenhydramine HCl (BENAdryl CAP) 25 mg Q4H PRN PO MILD ITCHING/RASH 11/20/25 16:30 12/20/25 16:29 Diphenhydramine HCl (BENAdryl INJ) 25 mg Q6H PRN IV SEVERE ITCHING/RASH 11/20/25 16:30 12/20/25 16:29 Docusate Sodium (COLace 100MG CAP) 100 mg BID PRN PO CONSTIPATION 11/20/25 16:30 12/20/25 16:29 Enoxaparin Sodium (Lovenox 60mg) 50 mg BID SQ 11/21/25 09:00 12/21/25 08:59 11/23/25 09:01 50 MG Enoxaparin Sodium (Lovenox) 40 mg DAILY SQ 11/20/25 22:30 11/20/25 22:25 DC EZETIMIBE (Zetia) 10 mg HS PO 11/22/25 21:00 12/22/25 20:59 11/22/25 21:43 10 MG Famotidine (Pepcid 20mg Vial) 20 mg DAILY@2100 IV 11/20/25 21:00 12/20/25 20:59 11/22/25 21:43 20 MG Famotidine (Pepcid 20mg Tab) 20 mg BID PO 11/20/25 21:00 12/20/25 20:59 UNV Guaifenesin (RobiTUSSin SUGAR-FREE 100 MG/ 5 ML UDCUP) 200 mg Q4H PRN PO COUGH 11/20/25 16:30 12/20/25 16:29 Guaifenesin/ Dextromethorphan (RobiTUSSin DM 200/20MG 10ML) 10 ml Q4H PRN PO COUGH 11/20/25 16:30 11/23/25 07:53 DC HCTZ/Losartan Potassium (Hyzaar 50-12.5 Tablet) 1 tab DAILY PO 11/23/25 09:00 12/23/25 08:59 11/23/25 09:00 1 TAB Home Med (Home Medication) (Calcium Carbonate/ Vitamin... DAILY PO 11/22/25 09:00 12/22/25 08:59 Home Med (Home Medication) Fluticasone/ Umeclidin/ Vilan... DAILY IH 11/22/25 09:00 12/22/25 08:59 Ipratropium [place] (AtrovENT UD) 0.5 mg [id number] IH 11/20/25 18:00 11/20/25 16:45 DC Ipratropium [place] (AtrovENT UD) 0.5 mg [id number] PRN IH SHORTNESS OF BREATH/WHEEZING 11/20/25 17:00 12/20/25 17:59 Lactulose (Constulose 20gm/ 30ml Udcup) 20 gm BID PRN PO CONSTIPATION 11/20/25 16:30 12/20/25 16:29 Levothyroxine Sodium (SYNTHroid 50MCG TAB) 50 mcg SYN PO 11/22/25 06:30 12/22/25 06:29 11/23/25 05:46 50 MCG Lidocaine HCl/Al Hydroxide/Mg Hydroxide/ Dicyclomine HCl 20ML OR AD MAALOX P... Q6H PRN PO HEARTBURN 11/20/25 16:30 12/20/25 16:29 Metoprolol Succinate (TopROL XL) 25 mg DAILY PO 11/22/25 09:00 12/22/25 08:59 11/23/25 09:00 25 MG Nitroglycerin (Nitrostat) 0.4 mg PROTOCOL PRN SL CHEST PAIN 11/20/25 16:30 12/20/25 16:29 11/21/25 10:57 0.4 MG Ondansetron HCl (zoFRAN 4MG INJ) 4 mg Q6H PRN IV NAUSEA/VOMITING 11/20/25 16:30 12/20/25 16:29 Polyethylene Glycol (MIRalax 3350 17 GM POWD.PACK) 17 gm DAILY PRN PO CONSTIPATION 11/20/25 16:30 12/20/25 16:29 Simvastatin (zoCOR) 20 mg HS PO 11/22/25 21:00 12/22/25 20:59 11/22/25 21:43 20 MG Diagnostics / Radiology: [COPY/PASTE HERE IF NO REPORTS PLEASE DELETE SECTION] Assessment: [History of anemia HTN ] Plan: Case discussed with Dr. Chavez [GI endoscopic intervention recommended at this time Patient may start Eliquis per cardiology recommendations Recommend trending hemoglobin daily. Please call with questions, concerns, and change in clinical status, and any signs of overt gi bleed. Thank you for this consult. ] JAYANT GARCIA Nov 23, 2025 16:29
--- NOTE | 2025-11-23 16:46 | PN ---
75-year-old female with past medical history of hypertension, DM type 2, hypothyroidism, who presented to ED with complaint of chest pain with associated lightheadedness and found to have hypokalemia, atrial fibrillation with RVR. Patient was seen and examined in ED with family members present at bedside. Apparently patient has been having issues with chest pain that started today with associated lightheadedness. Apparently this is the 1st time that the patient experienced this problem. There is no associated cough, fever, confusion, or alteration in mental status. In ED stat EKG was done and showed atrial fibrillation with RVR, was subsequently placed on Cardizem drip and consulted Cardiology. Initial CBC showed no acute anemia or infection, her chemistry significant for potassium level of 3.0, repleted in ER, UA consistent with cystitis, was initiated on IV ceftriaxone. Chest x-ray unrevealing for any acute infiltrates or consolidation. At present patient is currently hemodynamically stable, normal sinus rhythm on the monitor, on Cardizem drip, denies any chest pain, shortness of breath, nausea or vomiting, phlegm, cough, or flu-like symptoms. Patient denies any smoking, alcohol intake, or illicit drug use Hemoglobin level continues to be stable. So this patient could be changed manage flow of Lovenox to Eliquis PHYSICAL EXAM: GENERAL: alert, weak, awake oriented x 3 HEENT: EOMI, Sclera non icteric, moist mucosa NECK: Supple, no JVD, trachea midline LUNGS: Clear breath sounds bilaterally. No wheezes HEART: Regular rate and rhythm. Normal S1 and S2, without murmurs ABD: Abdomen soft, nontender. Bowel sounds present EXT: No clubbing cyanosis or edema NEURO: Alert and oriented to person, follows commands assessment History of DVT and PE in the past with the patient used to be on Eliquis which was stopped due to bleeding. Atrial fibrillation with RVR, currently normal sinus rhythm on the monitor, on Cardizem drip, POA Hypertension, POA Hyperlipidemia, POA Hypothyroidism, POA Hypokalemia, POA Acute complicated cystitis, POA DM type 2, with hyperglycemia, POA Plan 1. This patient hemoglobin is stable at 12.4 g/deciliter. Hemoglobin level continues to be stable. So this patient could be changed manage flow of Lovenox to Eliquis 2. continue on Lovenox 50 mg SQ twice daily. This patient may be could be changed to oral Eliquis 5 mg p.o. twice daily if it is okay with his cardiology. It seems cardiology then wanted clearance from GI to change her to oral which is fine from my point review. I think this patient could be checked as outpatient by GI 3. There was hypersegmented neutrophils. This patient to be started on folic acid 1 mg p.o. daily and vitamin B12 1000 mcg p.o. daily. If this patient discharged I could see her on Saturday or Saturday Vitals/Labs Vital Signs Date Time Temp Pulse Resp B/P (MAP) Pulse Ox O2 Delivery O2 Flow Rate FiO2 11/23/25 16:37 97.9 98 16 136/72 98 Room Air 11/23/25 07:04 21 11/22/25 20:00 0 Laboratory Tests 11/23/25 06:58 Medications Current Medications Sodium Chloride 500 ml @ 0 mls/hr ONCE ONCE IV Last administered on 11/20/25at 13:28; Start 11/20/25 at 13:30; Stop 11/20/25 at 13:31; Status DC Diltiazem HCl 10 mg ONCE ONCE IVP Last administered on 11/20/25at 13:25; Start 11/20/25 at 13:30; Stop 11/20/25 at 13:31; Status DC Metoprolol Tartrate 5 mg ONCE ONCE IV Last administered on 11/20/25at 15:09; Start 11/20/25 at 14:30; Stop 11/20/25 at 14:31; Status DC Metoprolol Tartrate 5 mg STK-MED ONCE IV; Start 11/20/25 at 14:16; Stop 11/20/25 at 14:16; Status DC Potassium Bicarbonate 50 meq ONCE ONCE PO Last administered on 11/20/25at 15:36; Start 11/20/25 at 14:30; Stop 11/20/25 at 14:31; Status DC Diltiazem HCl 125 mg/Sodium Chloride 125 ml @ 0 mls/hr PROTOCOL IV Last administered on 11/21/25at 13:41; Start 11/20/25 at 14:30; Stop 12/20/25 at 14:29 Ceftriaxone Sodium 1 gm ONCE ONCE IVPB Last administered on 11/20/25at 15:47; Start 11/20/25 at 15:30; Stop 11/20/25 at 15:31; Status DC Famotidine 20 mg BID PO; Start 11/20/25 at 21:00; Stop 12/20/25 at 20:59; Status UNV Diphenhydramine HCl 25 mg Q4H PRN PO; Start 11/20/25 at 16:30; Stop 12/20/25 at 16:29 Diphenhydramine HCl 25 mg Q6H PRN IV; Start 11/20/25 at 16:30; Stop 12/20/25 at 16:29 Acetaminophen 650 mg Q6H PRN PO; Start 11/20/25 at 16:30; Stop 12/20/25 at 16:29 Acetaminophen 650 mg Q4H PRN PO Last administered on 11/23/25at 15:33; Start 11/20/25 at 16:30; Stop 12/20/25 at 16:29 Ondansetron HCl 4 mg Q6H PRN IV; Start 11/20/25 at 16:30; Stop 12/20/25 at 16:29 Al Hydroxide/Mg Hydroxide 30 ml Q6H PRN PO; Start 11/20/25 at 16:30; Stop 12/20/25 at 16:29 Lactulose 20 gm BID PRN PO; Start 11/20/25 at 16:30; Stop 12/20/25 at 16:29 Nitroglycerin 0.4 mg PROTOCOL PRN SL Last administered on 11/21/25at 10:57; Start 11/20/25 at 16:30; Stop 12/20/25 at 16:29 Guaifenesin/ Dextromethorphan 10 ml Q4H PRN PO; Start 11/20/25 at 16:30; Stop 11/23/25 at 07:53; Status DC Ipratropium Astatula 0.5 mg [id number] IH; Start 11/20/25 at 18:00; Stop 11/20/25 at 16:45; Status DC Famotidine 20 mg DAILY@2100 IV Last administered on 11/22/25at 21:43; Start 11/20/25 at 21:00; Stop 12/20/25 at 20:59 Guaifenesin 200 mg Q4H PRN PO; Start 11/20/25 at 16:30; Stop 12/20/25 at 16:29 Docusate Sodium 100 mg BID PRN PO; Start 11/20/25 at 16:30; Stop 12/20/25 at 16:29 Polyethylene Glycol 17 gm DAILY PRN PO; Start 11/20/25 at 16:30; Stop 12/20/25 at 16:29 Lidocaine HCl/Al Hydroxide/Mg Hydroxide/ Dicyclomine HCl 20ML OR AD MAALOX P... Q6H PRN PO; Start 11/20/25 at 16:30; Stop 12/20/25 at 16:29 Artificial Tears 1 drop Q2H PRN OP; Start 11/20/25 at 16:30; Stop 12/20/25 at 16:29 Benzocaine 1 each Q2H PRN MM; Start 11/20/25 at 16:30; Stop 12/20/25 at 16:29 Ipratropium Astatula 0.5 mg [id number] PRN IH; Start 11/20/25 at 17:00; Stop 12/20/25 at 17:59 Ceftriaxone Sodium 1 gm Q24H IVPB Last administered on 11/22/25at 21:43; Start 11/21/25 at 21:00; Stop 12/01/25 at 20:59 Enoxaparin Sodium 40 mg DAILY SQ; Start 11/20/25 at 22:30; Stop 11/20/25 at 22:25; Status DC Enoxaparin Sodium 50 mg BID SQ Last administered on 11/23/25at 09:01; Start 11/21/25 at 09:00; Stop 12/21/25 at 08:59 Potassium Chloride 40 meq ONCE ONCE PO Last administered on 11/21/25at 10:09; Start 11/21/25 at 10:00; Stop 11/21/25 at 10:01; Status DC Amlodipine Besylate 5 mg DAILY PO Last administered on 11/22/25at 08:29; Start 11/22/25 at 09:00; Stop 11/23/25 at 07:53; Status DC Buspirone HCl 5 mg BID PO Last administered on 11/23/25at 09:00; Start 11/22/25 at 09:00; Stop 12/22/25 at 08:59 Home Med (Calcium Carbonate/ Vitamin... DAILY PO; Start 11/22/25 at 09:00; Stop 12/22/25 at 08:59 Simvastatin 20 mg HS PO Last administered on 11/22/25at 21:43; Start 11/22/25 at 21:00; Stop 12/22/25 at 20:59 Home Med Fluticasone/ Umeclidin/ Vilan... DAILY IH; Start 11/22/25 at 09:00; Stop 12/22/25 at 08:59 Levothyroxine Sodium 50 mcg SYN PO Last administered on 11/23/25at 05:46; Start 11/22/25 at 06:30; Stop 12/22/25 at 06:29 EZETIMIBE 10 mg HS PO Last administered on 11/22/25at 21:43; Start 11/22/25 at 21:00; Stop 12/22/25 at 20:59 Metoprolol Succinate 25 mg DAILY PO Last administered on 11/23/25at 09:00; Start 11/22/25 at 09:00; Stop 12/22/25 at 08:59 Regadenoson 0.4 mg STK-MED ONCE IVP Last administered on 11/22/25at 07:38; Start 11/22/25 at 07:36; Stop 11/22/25 at 07:36; Status DC HCTZ/Losartan Potassium 1 tab DAILY PO Last administered on 11/23/25at 09:00; Start 11/23/25 at 09:00; Stop 12/23/25 at 08:59 GRISELDA TORRES MD Nov 23, 2025 16:46
--- NOTE | 2025-11-23 20:34 | PN ---
[facility] PROGRESS NOTE Date Patient Seen: Nov 23, 2025 Time of Visit: 20:30 Supervising Physician: CATHY LEWIS MD Primary Care Physician: Dr. 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 Pertinent positives mentioned above. Otherwise negative. PHYSICAL EXAM: GENERAL: alert, weak, awake oriented x 3 HEENT: EOMI, Sclera non icteric, moist mucosa NECK: Supple, no JVD, trachea midline LUNGS: Clear breath sounds bilaterally. No wheezes HEART: Regular rate and rhythm. Normal S1 and S2, without murmurs ABD: Abdomen soft, nontender. Bowel sounds present EXT: No clubbing cyanosis or edema NEURO: Alert and oriented to person, follows commands Vital Signs (last 8hr) Date Time Temp Pulse Resp B/P (MAP) Pulse Ox O2 Delivery O2 Flow Rate FiO2 11/23/25 19:15 98.1 71 20 120/66 96 11/23/25 19:08 72 20 N/A Room Air 21 11/23/25 16:37 97.9 98 16 136/72 98 Room Air LABS: Hematology Labs: Test 11/23/25 06:58 Range/Units White Blood Count 6.9 4.8-10.8 K/uL Red Blood Count 3.95 L 4.00-5.50 MIL/uL Hemoglobin 12.2 12.0-16.0 g/dL Hematocrit 37.4 36-48 % Mean Corpuscular Volume 94.7 79-99 fL Mean Corpuscular Hemoglobin 30.9 27.0-33.0 pg Mean Corpuscular Hemoglobin Concent 32.6 32.0-36.0 g/dL Red Cell Distribution Width 13.1 11.0-15.5 % Platelet Count 208 130-400 K/uL Mean Platelet Volume 9.9 7.5-10.5 fL Immature Granulocyte % (Auto) 0.1 0-1 % Neutrophils (%) (Auto) 51.9 40.0-77.0 % Lymphocytes (%) (Auto) 34.4 21.0-51.0 % Monocytes (%) (Auto) 10.2 3.0-13.0 % Eosinophils (%) (Auto) 2.8 0.0-8.0 % Basophils (%) (Auto) 0.6 0.0-5.0 % Neutrophils # (Auto) 3.5 1.8-7.7 K/uL Lymphocytes # (Auto) 2.4 1.0-4.8 K/uL Monocytes # (Auto) 0.7 0.1-1.0 K/uL Eosinophils # (Auto) 0.19 0.00-0.70 K/uL Basophils # (Auto) 0.04 0.00-0.20 K/uL Absolute Immature Granulocyte (auto 0.01 0-1 K/uL Nucleated Red Blood Cells 0.0 0.0-0.19 % Chemistry Labs: Test 11/23/25 06:29 11/22/25 03:51 Range/Units Whole Blood Glucose 92 70-110 MG/DL Sodium Level 141 136-145 mmol/L Potassium Level 4.0 3.5-5.1 mmol/L Chloride Level 106 101-111 mmol/L Carbon Dioxide Level 25 21-32 mmol/L Blood Urea Nitrogen 12 7-18 mg/dL Creatinine 0.7 0.5-1.0 mg/dL Glomerular Filtration Rate Calc 89 >90 mL/min Random Glucose 97 70-105 mg/dL Total Calcium 8.3 L 8.5-10.1 mg/dL Magnesium Level 2.10 1.80-2.40 mg/dL DIAGNOSTICS / RADIOLOGY RESULTS: [ ] PLAN Continue telemetry monitoring Continue OAC Pending stress test as per Cardiology Optimize cardiac medications Cardiac diet NEURO: Minimize central acting medications as possible. Maintain fall precautions, adequate lighting during the day PULMONARY: Supplemental 02 as needed. Maintain aspiration precautions at all times CARDIOVASCULAR: Follow hemodynamics. Vital signs per facility protocol GI & NUTRITION: Continue with nutritional support. Continue stool softeners and laxatives as needed. KIDNEYS & ELECTROLYTES: Strict monitoring of intake, output and overall fluid balance. Avoid nephrotoxic medications to the extent possible. Medications to be dosed according to renal function. Monitor electrolytes and replace as needed ENDOCRINE: Maintain blood glucose between 100-180 at all times. Hypoglycemia protocol in place INFECTIOUS DISEASE: Trend temperature, WBC and procalcitonin level Follow cultures, deescalate antibiotics as soon as possible. Panculture if new onset fever ONCOLOGY/HEMATOLOGY/COAGULATION: Monitor for s/s of bleeding Monitor hemoglobin, coagulation studies as needed SKIN: Pressure ulcer prevention per facility protocol Specialty mattress ORTHO/REHAB: Continue PT/OT Prophylaxis: Continue GI and DVT prophylaxis Code Status: Full Resuscitation Disposition: as per PCP I personally scribed for CATHY LEWIS MD ([email or web address]) on 11/23/25 at 20:34. Electronically submitted by Francis Mihcael (MARCO [email or web address]). CATHY LEWIS MD Nov 23, 2025 20:34
[2025-11-24 00:15] VITALS: BP 157/74; PULSE 70; RESP 18; TEMP 98.3
[2025-11-24 03:15] VITALS: BP 132/63; PULSE 63; RESP 18; TEMP 97.9
[2025-11-24 06:50] VITALS: PULSE 68; RESP 20; O2SAT 97
[2025-11-24 07:53] VITALS: BP 137/72; PULSE 66; RESP 16; TEMP 98
[2025-11-24 08:00] VITALS: O2SAT 97
[2025-11-24] MEDS: CYANOCOBALAMIN (VITAMIN B-12) 1,000 MCG TABLET PO SCH (08:13)
[2025-11-24] MEDS ORDERED: CYAN-52 PO (11:46)
[2025-11-24] MEDS ORDERED: METO25TA3 PO (11:46)
[2025-11-24] MEDS ORDERED: APIX5TAB PO (11:46)
[2025-11-24] MEDS ORDERED: LOSA-422 PO (11:46)
[2025-11-24] MEDS ORDERED: FOLI1 PO (11:46)
--- NOTE | 2025-11-24 11:50 | DS ---
[facility] DISCHARGE SUMMARY Date Patient Seen: Nov 24, 2025 Time of Visit: 11:47 Supervising Physician: Dr. Louise Primary Care Physician: Dr. Kaitlin Balbuena Outpatient Specialists: [ ] Inpatient Consults: [ ] HOSPITAL COURSE: HPI (per admitting provider) 75-year-old female with past medical history of hypertension, DM type 2, hypothyroidism, who presented to ED with complaint of chest pain with associated lightheadedness and found to have hypokalemia, atrial fibrillation with RVR. Patient was seen and examined in ED with family members present at bedside. Apparently patient has been having issues with chest pain that started today with associated lightheadedness. Apparently this is the 1st time that the patient experienced this problem. There is no associated cough, fever, confusion, or alteration in mental status. In ED stat EKG was done and showed atrial fibrillation with RVR, was subsequently placed on Cardizem drip and consulted Cardiology. Initial CBC showed no acute anemia or infection, her chemistry significant for potassium level of 3.0, repleted in ER, UA consistent with cystitis, was initiated on IV ceftriaxone. Chest x-ray unrevealing for any acute infiltrates or consolidation. At present patient is currently hemodynamically stable, normal sinus rhythm on the monitor, on Cardizem drip, denies any chest pain, shortness of breath, nausea or vomiting, phlegm, cough, or flu-like symptoms. Patient denies any smoking, alcohol intake, or illicit drug use The patient was treated for the following problems: The patient was evaluated on this admission for new onset atrial fibrillation as well as hypertension. Patient was evaluated by Cardiology with significant changes to the patient's hypertensive regimen as well as initiation of anticoagulation once cleared by GI. Hematology was also consulted for anemia, patient has been initiated on folic acid and B12 therapy as outpatient with recommendations to follow up in his clinic this next week. Patient to follow up with Cardiology as well, medications sent to pharmacy, antibiotics to complete course of treatment for UTI. ACTIVE PROBLEM LIST FOR THE HOSPITALIZATION: Atrial fibrillation with RVR Primary hypertension CHRONIC PROBLEMS: continue previous management per PCP unless otherwise indicated Hypothyroidism Acute complicated cystitis with Gram-negative bacteria Type 2 diabetes mellitus with hyperglycemia Coronary artery disease MARKETING TECHNOLOGY COORDINATOR FINDINGS/RECOMMENDATIONS: [ ] PROCEDURES: as mentioned above DISCHARGE MEDICATIONS: Pt hemodynamically stable and afebrile at time of discharge. PCP notified of patients admission, hospital course and discharge. PHYSICAL EXAM: GENERAL: alert, weak, awake oriented x 3 HEENT: EOMI, Sclera non icteric, moist mucosa NECK: Supple, no JVD, trachea midline LUNGS: Clear breath sounds bilaterally. No wheezes HEART: Regular rate and rhythm. Normal S1 and S2, without murmurs ABD: Abdomen soft, nontender. Bowel sounds present EXT: No clubbing cyanosis or edema NEURO: Alert and oriented to person, follows commands FOLLOW-UP: Follow-up with PCP in 2-3 days RECOMMENDATIONS: See Discharge Instructions This case was seen and discussed with my supervising physician. More than 30 minutes spent on discharge process, including evaluation of the patient, disc ussion with nursing staff, medication reconciliation and follow-up appointments ROBEL CAMACHO PAC Nov 24, 2025 11:50
[2025-11-24] MEDS ORDERED: LEVO750T68 PO (11:51)
[2025-11-24 11:54] VITALS: BP 128/70; PULSE 69; RESP 16; TEMP 97.8
--- NOTE | 2025-11-24 12:22 | NUR ---
PATIENT AXOX4 WITH SISTERS AT BEDSIDE BEING DISCHARGED HOME. EDUCATED ON NEW PRESCRIPTIONS AND FINAL MEDICATIONS LIST, MEDICATIONS EXPLAINED INCLUDING SIDE EFFECTS AND RISK FOR BLEEDING PRECAUTIONS AND MONITORING. IVX2 REMOVED WITHOUT COMPLICATIONS. PATIENT EDUCATED TO CALL ON SATURDAY AND SCHEDULE RAMYA WITH DR. GLEZ, DR. TORRES AND GI PER RECOMMENDATIONS. ALL QUESTIONS ANSWERED, PATIENT AND FAMILY VERBALIZED COMPLETE UNDERSTANDING. PATIENT GATHERED ALL BELONGINGS AND TOOK WITH HER T DC.
--- NOTE | 2025-11-24 14:57 | PN ---
75-year-old female with past medical history of hypertension, DM type 2, hypothyroidism, who presented to ED with complaint of chest pain with associated lightheadedness and found to have hypokalemia, atrial fibrillation with RVR. Patient was seen and examined in ED with family members present at bedside. Apparently patient has been having issues with chest pain that started today with associated lightheadedness. Apparently this is the 1st time that the patient experienced this problem. There is no associated cough, fever, confusion, or alteration in mental status. In ED stat EKG was done and showed atrial fibrillation with RVR, was subsequently placed on Cardizem drip and consulted Cardiology. Initial CBC showed no acute anemia or infection, her chemistry significant for potassium level of 3.0, repleted in ER, UA consistent with cystitis, was initiated on IV ceftriaxone. Chest x-ray unrevealing for any acute infiltrates or consolidation. At present patient is currently hemodynamically stable, normal sinus rhythm on the monitor, on Cardizem drip, denies any chest pain, shortness of breath, nausea or vomiting, phlegm, cough, or flu-like symptoms. Patient denies any smoking, alcohol intake, or illicit drug use Hemoglobin level continues to be stable. So this patient could be changed manage flow of Lovenox to Eliquis PHYSICAL EXAM: GENERAL: alert, weak, awake oriented x 3 HEENT: EOMI, Sclera non icteric, moist mucosa NECK: Supple, no JVD, trachea midline LUNGS: Clear breath sounds bilaterally. No wheezes HEART: Regular rate and rhythm. Normal S1 and S2, without murmurs ABD: Abdomen soft, nontender. Bowel sounds present EXT: No clubbing cyanosis or edema NEURO: Alert and oriented to person, follows commands assessment History of DVT and PE in the past with the patient used to be on Eliquis which was stopped due to bleeding. Atrial fibrillation with RVR, currently normal sinus rhythm on the monitor, on Cardizem drip, POA Hypertension, POA Hyperlipidemia, POA Hypothyroidism, POA Hypokalemia, POA Acute complicated cystitis, POA DM type 2, with hyperglycemia, POA Plan 1. This patient hemoglobin is stable at 12.4 g/deciliter. Hemoglobin level continues to be stable. So this patient could be changed manage flow of Lovenox to Eliquis 2. continue on Lovenox 50 mg SQ twice daily. This patient may be could be changed to oral Eliquis 5 mg p.o. twice daily if it is okay with his cardiology. It seems cardiology then wanted clearance from GI to change her to oral which is fine from my point review. I think this patient could be checked as outpatient by GI 3. There was hypersegmented neutrophils. This patient to be started on folic acid 1 mg p.o. daily and vitamin B12 1000 mcg p.o. daily. If this patient discharged I could see her on Saturday or Saturday Vitals/Labs Vital Signs Date Time Temp Pulse Resp B/P (MAP) Pulse Ox O2 Delivery O2 Flow Rate FiO2 11/24/25 11:54 97.9 69 16 128/70 99 Room Air 11/24/25 08:00 0 21 Medications Current Medications Sodium Chloride 500 ml @ 0 mls/hr ONCE ONCE IV Last administered on 11/20/25at 13:28; Start 11/20/25 at 13:30; Stop 11/20/25 at 13:31; Status DC Diltiazem HCl 10 mg ONCE ONCE IVP Last administered on 11/20/25at 13:25; Start 11/20/25 at 13:30; Stop 11/20/25 at 13:31; Status DC Metoprolol Tartrate 5 mg ONCE ONCE IV Last administered on 11/20/25at 15:09; Start 11/20/25 at 14:30; Stop 11/20/25 at 14:31; Status DC Metoprolol Tartrate 5 mg STK-MED ONCE IV; Start 11/20/25 at 14:16; Stop 11/20/25 at 14:16; Status DC Potassium Bicarbonate 50 meq ONCE ONCE PO Last administered on 11/20/25at 15:36; Start 11/20/25 at 14:30; Stop 11/20/25 at 14:31; Status DC Diltiazem HCl 125 mg/Sodium Chloride 125 ml @ 0 mls/hr PROTOCOL IV Last administered on 11/21/25at 13:41; Start 11/20/25 at 14:30; Stop 11/24/25 at 12:42; Status DC Ceftriaxone Sodium 1 gm ONCE ONCE IVPB Last administered on 11/20/25at 15:47; Start 11/20/25 at 15:30; Stop 11/20/25 at 15:31; Status DC Famotidine 20 mg BID PO; Start 11/20/25 at 21:00; Stop 12/20/25 at 20:59; Status UNV Diphenhydramine HCl 25 mg Q4H PRN PO; Start 11/20/25 at 16:30; Stop 11/24/25 at 12:42; Status DC Diphenhydramine HCl 25 mg Q6H PRN IV; Start 11/20/25 at 16:30; Stop 11/24/25 at 12:42; Status DC Acetaminophen 650 mg Q6H PRN PO; Start 11/20/25 at 16:30; Stop 11/24/25 at 12:42; Status DC Acetaminophen 650 mg Q4H PRN PO Last administered on 11/23/25at 15:33; Start 11/20/25 at 16:30; Stop 11/24/25 at 12:42; Status DC Ondansetron HCl 4 mg Q6H PRN IV Last administered on 11/24/25at 06:21; Start 11/20/25 at 16:30; Stop 11/24/25 at 12:42; Status DC Al Hydroxide/Mg Hydroxide 30 ml Q6H PRN PO; Start 11/20/25 at 16:30; Stop 11/24/25 at 12:42; Status DC Lactulose 20 gm BID PRN PO; Start 11/20/25 at 16:30; Stop 11/24/25 at 12:42; Status DC Nitroglycerin 0.4 mg PROTOCOL PRN SL Last administered on 11/21/25at 10:57; Start 11/20/25 at 16:30; Stop 11/24/25 at 12:42; Status DC Guaifenesin/ Dextromethorphan 10 ml Q4H PRN PO; Start 11/20/25 at 16:30; Stop 11/23/25 at 07:53; Status DC Ipratropium [place] 0.5 mg [id number] IH; Start 11/20/25 at 18:00; Stop 11/20/25 at 16:45; Status DC Famotidine 20 mg DAILY@2100 IV Last administered on 11/23/25at 20:16; Start 11/20/25 at 21:00; Stop 11/24/25 at 12:42; Status DC Guaifenesin 200 mg Q4H PRN PO; Start 11/20/25 at 16:30; Stop 11/24/25 at 12:42; Status DC Docusate Sodium 100 mg BID PRN PO; Start 11/20/25 at 16:30; Stop 11/24/25 at 12:43; Status DC Polyethylene Glycol 17 gm DAILY PRN PO; Start 11/20/25 at 16:30; Stop 11/24/25 at 12:43; Status DC Lidocaine HCl/Al Hydroxide/Mg Hydroxide/ Dicyclomine HCl 20ML OR AD MAALOX P... Q6H PRN PO; Start 11/20/25 at 16:30; Stop 11/24/25 at 12:43; Status DC Artificial Tears 1 drop Q2H PRN OP; Start 11/20/25 at 16:30; Stop 11/24/25 at 12:43; Status DC Benzocaine 1 each Q2H PRN MM; Start 11/20/25 at 16:30; Stop 11/24/25 at 12:43; Status DC Ipratropium [place] 0.5 mg [id number] PRN IH; Start 11/20/25 at 17:00; Stop 11/24/25 at 12:43; Status DC Ceftriaxone Sodium 1 gm Q24H IVPB Last administered on 11/23/25at 20:17; Start 11/21/25 at 21:00; Stop 11/24/25 at 12:43; Status DC Enoxaparin Sodium 40 mg DAILY SQ; Start 11/20/25 at 22:30; Stop 11/20/25 at 22:25; Status DC Enoxaparin Sodium 50 mg BID SQ Last administered on 11/23/25at 09:01; Start 11/21/25 at 09:00; Stop 11/23/25 at 18:52; Status DC Potassium Chloride 40 meq ONCE ONCE PO Last administered on 11/21/25at 10:09; Start 11/21/25 at 10:00; Stop 11/21/25 at 10:01; Status DC Amlodipine Besylate 5 mg DAILY PO Last administered on 11/22/25at 08:29; Start 11/22/25 at 09:00; Stop 11/23/25 at 07:53; Status DC Buspirone HCl 5 mg BID PO Last administered on 11/24/25at 08:14; Start 11/22/25 at 09:00; Stop 11/24/25 at 12:43; Status DC Home Med (Calcium Carbonate/ Vitamin... DAILY PO; Start 11/22/25 at 09:00; Stop 11/24/25 at 12:43; Status DC Simvastatin 20 mg HS PO Last administered on 11/23/25at 20:16; Start 11/22/25 at 21:00; Stop 11/24/25 at 12:43; Status DC Home Med Fluticasone/ Umeclidin/ Vilan... DAILY IH; Start 11/22/25 at 09:00; Stop 11/24/25 at 12:43; Status DC Levothyroxine Sodium 50 mcg SYN PO Last administered on 11/24/25at 05:46; Start 11/22/25 at 06:30; Stop 11/24/25 at 12:43; Status DC EZETIMIBE 10 mg HS PO Last administered on 11/23/25at 20:16; Start 11/22/25 at 21:00; Stop 11/24/25 at 12:43; Status DC Metoprolol Succinate 25 mg DAILY PO Last administered on 11/24/25at 08:14; Start 11/22/25 at 09:00; Stop 11/24/25 at 12:43; Status DC Regadenoson 0.4 mg STK-MED ONCE IVP Last administered on 11/22/25at 07:38; Start 11/22/25 at 07:36; Stop 11/22/25 at 07:36; Status DC HCTZ/Losartan Potassium 1 tab DAILY PO Last administered on 11/24/25at 08:14; Start 11/23/25 at 09:00; Stop 11/24/25 at 12:43; Status DC Apixaban 5 mg BID PO Last administered on 11/24/25at 08:14; Start 11/23/25 at 21:00; Stop 11/24/25 at 12:43; Status DC Folic Acid 1 mg DAILY PO Last administered on 11/24/25at 08:14; Start 11/24/25 at 09:00; Stop 11/24/25 at 12:43; Status DC Vitamin B Complex 1,000 mcg DAILY PO Last administered on 11/24/25at 08:13; Start 11/24/25 at 09:00; Stop 11/24/25 at 12:43; Status DC GRISELDA TORRES MD Nov 24, 2025 14:57
== END 2025-11-24 12:30 | disposition home or self-care (01) | DRG 309 ==
LOC: EDH 12:53 → EDHIP 16:13 → 2AH 11-21 13:40
PROVIDERS: ADMIT Internal Medicine Critical Care Medicine; ATTEND Internal Medicine Critical Care Medicine
DX: I48.0 Paroxysmal atrial fibrillation (principal); N30.00 Acute cystitis without hematuria; E03.9 Hypothyroidism, unspecified; E11.65 Type 2 diabetes mellitus with hyperglycemia; I10 Essential (primary) hypertension; J44.9 Chronic obstructive pulmonary disease, unspecified; E87.6 Hypokalemia; I47.19 Other supraventricular tachycardia; E78.00 Pure hypercholesterolemia, unspecified; I25.10 Atherosclerotic heart disease of native coronary artery without angina pectoris; Z96.653 Presence of artificial knee joint, bilateral; K21.9 Gastro-esophageal reflux disease without esophagitis; K57.30 Diverticulosis of large intestine without perforation or abscess without bleeding; Z82.49 Family history of ischemic heart disease and other diseases of the circulatory system; Z86.16 Personal history of COVID-19; Z86.711 Personal history of pulmonary embolism; Z86.718 Personal history of other venous thrombosis and embolism; Z87.442 Personal history of urinary calculi; Z79.899 Other long term (current) drug therapy; Z88.8 Allergy status to other drugs, medicaments and biological substances
CPT/HCPCS: 36415; 71045; 78452; 80048; 80053; 81001; 82948; 83036; 83605; 83735; 84132; 84145; 84439; 84443; 84484; 85025; 87086; 87186; 93005; 93017; 93306; 93356; 99285; A9500; G0378; J0696; J1650; J2405; J2785; J3490; J7040; J1308

== ENCOUNTER 2025-11-28 10:21 | Emergency (ER) | payer OTHER ==
[~2025-11-28] VITALS: Ht 147.3 cm; Wt 54.4 kg
[~2025-11-28 10:21] MED LIST changes: -AMLO-257 PO; -CALC-190 PO; +CALC-909 PO; +CYAN-52 PO; +EZET-59 PO; -EZET-80 PO; +FLUT1BLS15 IH; -FLUT1BLS3 IH; +FOLI1 PO; -HYDR12.54 PO; -IBUP-1493 PO; +LEVO50CA5 PO; -LEVO50TA6 PO; +LEVO750T68 PO; +LOSA-422 PO; -MECL-302 PO; -MELO-108 PO; -METH4TAB3 PO; +METO25TA3 PO; -PREG50 PO
[2025-11-28 11:27] LABS: IMMATURE GRANULOCYTE ABSOLUTE 0.01 K/uL (0-1); NUCLEATED RED BLOOD CELLS 0.0 % (0.0-0.19); PLATELET COUNT (AUTO) 232 K/uL (130-400); RED BLOOD CELL COUNT(AUTO) 4.08 MIL/uL (4.00-5.50); RED CELL DISTRIBUTION WIDTH 12.6 % (11.0-15.5); WHITE BLOOD COUNT (AUTO) 5.0 K/uL (4.8-10.8)
[2025-11-28 11:33] LABS: CREATININE 0.8 mg/dL (0.5-1.0); GLOMERULAR FILTR. RATE CALC 76.0 mL/min (>90); GLUCOSE,RANDOM 93.0 mg/dL (70-105); SODIUM SERUM 140.0 mmol/L (136-145); UREA NITROGEN, BLOOD 13.0 mg/dL (7-18)
[2025-11-28 11:37] LABS: ASPARTATE AMINOTRANSFERASE 25.0 U/L (10-37); TOTAL PROTEIN, SERUM 7.5 g/dL (6.0-8.3)
--- NOTE | 2025-11-28 12:29 | HMCIMG ---
STUDY CR Chest, 1 view CLINICAL HISTORY Shortness of breath TECHNIQUE Single frontal radiograph of the chest COMPARISON CR chest 11/20/2025 FINDINGS Lungs There is minimal bandlike opacity at the left lung base consistent with subsegmental atelectasis. The remaining lung pavon are clear without focal consolidation, overt pulmonary edema, or pneumonic infiltrate. Pleural spaces No pleural effusion or pneumothorax is identified. Mediastinum and glenn Cardiac size and mediastinal contours are within normal limits. Hilar silhouettes are unremarkable. Bones and soft tissues No acute osseous abnormality is identified. Visualized soft tissues are unremarkable. IMPRESSION * Minimal left basilar subsegmental atelectasis. No radiographic evidence of acute consolidation, pleural effusion, or pneumothorax. /Grethel
--- NOTE | 2025-11-28 13:07 | EKG ---
[facility] Test Date: 2025-11-28 Test Time: 10:38:28 Pat Name: LILIBETH TELLO Department: ED Room: Gender: F Habilitative Interventionist: [id number] : [id number] Requested By: KARL LEE Order Number: [id number] Reading MD: Lamar Martel Measurements Intervals [place] Rate: 64 P: 30 TN: 150 QRS: -5 QRSD: 81 T: 24 QT: 412 QTc: 427 Interpretive Statements Sinus rhythm Compared to ECG 11/20/2025 12:44:33 Atrial fibrillation no longer present Electronically Signed On 11-29-2025 09:03:28 RUG SIZER by Lamar Martel Please click the below link to view image of tracing.
[2025-11-28 13:25] LABS: COVID19 (SARS ANTIGEN RAPID) PRESUMPTIVE NEGATIVE (NEGATIVE); INFLUENZA TYPE A Negative For Type A (NEGATIVE); INFLUENZA TYPE B Negative For Type B (NEGATIVE)
--- NOTE | 2025-11-28 13:27 | ERN ---
ED Note History of Present Illness Stated Complaint: SHORTNESS OF BREATH Chief Complaint: Shortness of Breath Time Seen by MD: 10:27 Dictation: 75-year-old female presenting to the emergency department with shortness a breath over the past few days patient reports cough cold congestion, similar episodes in the past, had a recent visit for AFib RVR however currently is not having palpitations. Allergies: Coded Allergies: clarithromycin (Unverified Allergy, Unknown, BLISTERS, 09/16/19) tramadol (Unverified Allergy, Unknown, 09/16/19) ITCHING Uncoded Allergies: AMITIZA (Allergy, Unknown, CHEST PAIN, 09/16/19) LEVQUIN (Allergy, Unknown, RASH, 09/16/19) STERIOD (Allergy, Unknown, FLU SYMPTOMS, 09/16/19) Home Meds Active Scripts Levofloxacin (Levaquin 750Mg Tabs) 750 Mg Tablet, 1 TAB PO DAILY for 5 Days, #5 TAB 0 Refills Prov:ROBEL CAMACHO PAC 11/24/25 Cyanocobalamin (Vitamin B-12) (Vitamin B-12) 1,000 Mcg Tablet, 1000 MCG PO DAILY, #30 TAB Prov:ROBEL CAMACHO PAC 11/24/25 Folic Acid (Folvite) 1 Mg Tab, 1 MG PO DAILY, #30 TAB Prov:ROBEL CAMACHO PAC 11/24/25 Apixaban (Eliquis) 5 Mg Tablet, 5 MG PO BID, #60 TAB Prov:ROBEL CAMACHO PAC 11/24/25 Losartan/Hydrochlorothiazide (Hyzaar 50-12.5 Tablet) 50 Mg-12.5 Mg Tablet, 1 TAB PO DAILY, #60 TAB Prov:ROBEL CAMACHO PAC 11/24/25 Metoprolol Succinate (Toprol Xl) 25 Mg Tab.er.24h, 25 MG PO DAILY, #60 TAB Prov:ROBEL CAMACHO PAC 11/24/25 Reported Medications Fluticasone/Umeclidin/Vilanter (Trelegy Ellipta 200-62.5-25) 200-62.5 Blst.w.dev, 1 PUFF IH DAILY for 30 Days, #60 EACH 0 Refills 11/21/25 Levothyroxine Sodium (Levothyroxine) 50 Mcg Capsule, 1 CAP PO ACBKFST for 30 Days, #30 CAP 0 Refills 11/21/25 Calcium Carbonate/Vitamin D3 (Calcium 600 + Vit D Caplet) 600 Mg Calcium-10 Mcg (400 Unit) Tablet, 1 EACH PO DAILY, TAB 11/21/25 Ezetimibe/Simvastatin (Ezetimibe-Simvastatin 10-20 mg) 10 Mg-20 Mg Tablet, 1 TAB PO HS for 30 Days, #30 TAB 0 Refills 11/21/25 Buspirone HCl (Buspirone HCl) 5 Mg Tablet, 1 TAB PO BID for 30 Days, #60 TAB 0 Refills 11/21/25 Discontinued Reported Medications Amlodipine Besylate (Norvasc) 5 Mg Tablet, 1 TAB PO DAILY for 30 Days, #30 TAB 0 Refills 11/21/25 Hydrochlorothiazide (Hydrochlorothiazide) 12.5 Mg Tablet, 12.5 MG PO DAILY, TAB 11/21/25 Buspirone HCl (Buspirone HCl) 5 Mg Tablet, 1 TAB PO BID 11/21/22 Fluticasone/Umeclidin/Vilanter (Trelegy Ellipta 100-62.5-25) 1 Each Blst.w.dev, 1 PUFF IH QDP 11/21/22 Meloxicam (Meloxicam) 15 Mg Tablet, 1 TAB PO QDP for PAIN 11/21/22 Levothyroxine Sodium (Synthroid) 50 Mcg Tablet, 50 MCG PO ACBKFST, TAB 09/17/19 Pregabalin (Lyrica) 50 Mg Cap, 50 MG PO HS PRN for PAIN LEVEL 4 TO 6, CAP 09/17/19 Calcium Carbonate/Vitamin D3 (Calcium + Vitamin D Tablet) 1 Each Tablet, 1 EACH PO DAILY, TAB 09/13/16 Amlodipine Besylate (Amlodipine Besylate) 5 Mg Tablet, 5 MG PO DAILY, TAB 09/13/16 Ezetimibe/Simvastatin (Vytorin 10-20 mg Tablet) 1 Each Tablet, 1 EACH PO HS, TAB 09/13/16 Hydrochlorothiazide (Hydrochlorothiazide) 12.5 Mg Tablet, 12.5 MG PO DAILY, TAB 09/13/16 Discontinued Scripts Meclizine HCl (Meclizine HCl) 25 Mg Tablet, 25 MG PO TID for vertigo, #30 TAB 0 Refills Prov:VELMA DENNIS ARTIFICIAL FOLIAGE ARRANGER 05/24/24 Methylprednisolone (Medrol) 4 Mg Tab.ds.pk, 4 MG PO AD, #1 UNIT Prov:VELMA DENNIS [employer]IFIC[employer] FOLIAGE ARRANGER 05/24/24 Apixaban (Eliquis) 5 Mg Tablet, 5 MG PO BID, #30 TAB Prov:JURADOANGELESJONATHAN RAWHIDE TRIMMER 11/22/22 Apixaban (Eliquis) 5 Mg Tablet, 10 MG PO BID for 6 Days, #12 TAB Prov:JURADO,JONATHAN RAWHIDE TRIMMER 11/22/22 Ibuprofen (Motrin/Advil) 800 Mg Tab, 800 MG PO TID, #30 TAB Prov:JULIA BLANKENSHIP MD 10/18/22 Past Medical History Past Medical History: COPD, High Cholesterol, Hypertension, Hypothyroid Additional Past Medical Hx: KIDNEY STONES , BACKPAIN Surgical History: Other Surgical History Other: TOTAL KNEE REPLACEMENT, ROTATOR CUFF Family History: Negative Social History: Negative History: Not Applicable Review of System Dictation Constitutional: Negative for fever,chills, and weight loss Eyes: Negative for injury, pain,redness, and discharge ENT: Negative for injury,pain or swelling Cardiovascular: Negative for chest pain, palpitations, and edema Respiratory: Per HPI Abdomen/GI: Negative for abdominal pain, nausea, vomiting, diarrhea, and constipation Back: Negative for injury and pain : Negative for injury, bleeding and discharge MS/Extremity: Negative for injury and deformity Skin: Negative for rash, and discoloration Neuro: Negative for headache, weakness, numbness, tingling, and seizure Psych: Negative for suicide ideation, homicidal ideation, and hallucinations Initial Vital Sign VS Vital Signs Date Time Temp Pulse Resp B/P (MAP) Pulse Ox O2 Delivery O2 Flow Rate FiO2 11/28/25 10:22 97.2 71 20 132/58 98 Room Air 11/28/25 12:33 0 21 Physical Exam Dictation General: awake, alert, NAD Head/Face: Normocephalic, atraumatic Eyes: PERRL, EOMI, vision at baseline ENT: oral cavity clear, TMs clear, no signs of infection Neck: Trachea midline, supple, no nuchal rigidity Cardiovascular: RRR, normal S1/S2, No MRGs, no JVD Respiratory: CTAB, no respiratory distress, No rales or wheezes Abdomen: Soft, non-tender, non-distended, normal bowel sounds, no guarding or rebound. Skin: Warm, dry, normal turgor, no rash MS/Extremity: Pulses equal, no cyanosis, neurovascular intact, FROM Neuro: COAx4, GCS 15, strength 5/5, CN 2-12 intact, normal cerebellar exam, normal gait, Psych: Normal behavior, mood, and affect normal Results (Laboratory/Radiology) Laboratory/Radiology Laboratory Tests Test 11/28/25 10:48 11/28/25 12:26 White Blood Count 5.0 K/uL (4.8-10.8) Red Blood Count 4.08 MIL/uL (4.00-5.50) Hemoglobin 12.8 g/dL (12.0-16.0) Hematocrit 38.7 % (36-48) Mean Corpuscular Volume 94.9 fL (79-99) Mean Corpuscular Hemoglobin 31.4 pg (27.0-33.0) Mean Corpuscular Hemoglobin Concent 33.1 g/dL (32.0-36.0) Red Cell Distribution Width 12.6 % (11.0-15.5) Platelet Count 232 K/uL (130-400) Mean Platelet Volume 10.6 fL (7.5-10.5) H Immature Granulocyte % (Auto) 0.2 % (0-1) Neutrophils (%) (Auto) 45.4 % (40.0-77.0) Lymphocytes (%) (Auto) 40.0 % (21.0-51.0) Monocytes (%) (Auto) 10.6 % (3.0-13.0) Eosinophils (%) (Auto) 3.0 % (0.0-8.0) Basophils (%) (Auto) 0.8 % (0.0-5.0) Neutrophils # (Auto) 2.3 K/uL (1.8-7.7) Lymphocytes # (Auto) 2.0 K/uL (1.0-4.8) Monocytes # (Auto) 0.5 K/uL (0.1-1.0) Eosinophils # (Auto) 0.15 K/uL (0.00-0.70) Basophils # (Auto) 0.04 K/uL (0.00-0.20) Absolute Immature Granulocyte (auto 0.01 K/uL (0-1) Nucleated Red Blood Cells 0.0 % (0.0-0.19) D-Dimer Quantitative (PE/DVT) 414 ng/mL (0-500) Sodium Level 140 mmol/L (136-145) Potassium Level 3.8 mmol/L (3.5-5.1) Chloride Level 103 mmol/L (101-111) Carbon Dioxide Level 28 mmol/L (21-32) Blood Urea Nitrogen 13 mg/dL (7-18) Creatinine 0.8 mg/dL (0.5-1.0) Glomerular Filtration Rate Calc 76 mL/min (>90) Random Glucose 93 mg/dL (70-105) Total Calcium 8.8 mg/dL (8.5-10.1) Total Bilirubin 0.5 mg/dL (0.2-1.0) Direct Bilirubin 0.1 mg/dL (0.0-0.3) Aspartate Amino Transf (AST/SGOT) 25 U/L (10-37) Alanine Aminotransferase (ALT/SGPT) 37 U/L (12-78) Alkaline Phosphatase 55 U/L (50-136) Troponin I High Sensitivity 6 ng/L (4-50) B-Type Natriuretic Peptide 21 pg/mL (0-100) Total Protein 7.5 g/dL (6.0-8.3) Albumin 3.8 g/dL (3.5-5.0) Influenza Type A Antigen Negative For Type A Influenza Type B Antigen Negative For Type B SARS-CoV-2 Antigen (Rapid) PRESUMPTIVE NEGATIVE Labs Reviewed?: Yes EKG Comment: Heart rate 64 normal sinus rhythm normal intervals no STEMI or STEMI equivalent ED Course ED Course Orders Procedure Category Date Status Time B-Type Natriuretic LAB 11/28/25 Complete Peptide 10:28 D-Dimer LAB 11/28/25 Complete 10:28 12 Lead Ekg Tracing- EKG 11/28/25 Complete Technical 10:28 Basic Metabolic Panel LAB 11/28/25 Complete 10:28 Cbc With Differential LAB 11/28/25 Complete 10:28 Hepatic Function Panel LAB 11/28/25 Complete 10:28 Troponin I High LAB 11/28/25 Complete Sensitivity 10:28 Chest 1vw RAD 11/28/25 Resulted 10:28 Covid19 (Sars Antigen LAB 11/28/25 Complete Rapid) 10:28 Influenza Type A & B, LAB 11/28/25 Complete Rapid 10:28 Ipratropium 0.5 PHA 11/28/25 Complete Mg/2.5 Ml Inh 12:50 Diazepam 5 Mg/Ml 2 Ml PHA 11/28/25 Complete Syg (Valium 5 Mg/M 12:50 Current Medications Medications (Trade) Dose Ordered Sig/Porfirio Route PRN Reason Start Time Stop Time Status Last Admin Dose Admin Diazepam (VALium 5 MG/ML 2 ML SYG) 2.5 mg ONCE STAT IVP 11/28/25 12:50 11/28/25 12:52 DC 11/28/25 13:30 Ipratropium [place] (AtrovENT UD) 0.5 mg ONCE STAT IH 11/28/25 12:50 11/28/25 12:52 DC 11/28/25 13:30 Vital Signs Date Time Temp Pulse Resp B/P (MAP) Pulse Ox O2 Delivery O2 Flow Rate FiO2 11/28/25 13:31 65 18 11/28/25 12:33 97.5 59 24 153/74 99 Room Air* 0 21 11/28/25 10:22 97.2 71 20 132/58 98 Room Air Medical Decision Making MDM MDM: Differential diagnosis: Rationale: Tests considered and ordered secondary to shared decision making include: Previous outside records reviewed: Old ER visits. Risk of complication and/or morbidity or mortality of patient management: None Medications-Per medication reconciliation Need for hospitalization: Patient does not meet criteria for hospitalization. Need for emergency major/minor surgery: No There are no social concerns with this patient. Prescription drug management Prescriptions will include symptomatic care Patient's prior external medical records from other ER visits were reviewed by me as indicated. Prior testing and results from previous visits were reviewed. Prior tests were taken into account with medical decision making and resource utilization, independent historian/historians were used to obtain complete medical history. I independently interpreted the test that were performed, results were reviewed by me and considered findings on radiology if ordered. Medical management and examination interpretation discussions were had by me with other qualified healthcare professionals as indicated for the patient's care. 75-year-old female with shortness of breath, stable exam negative workup normal sinus rhythm no cardiac issue and negative D-dimer, vitals are all stable stable for discharge. DX & DISP Disposition: Discharge Departure Impression: Primary Impression: Dyspnea Condition: Stable Referrals: BROCK BRUNSON MD (PCP) KARL LEE MD Nov 28, 2025 13:26
[2025-11-28 13:31] VITALS: PULSE 65; RESP 18
[2025-11-28 14:47] VITALS: BP 153/66; PULSE 64; RESP 21; TEMP 97.3; O2SAT 97
== END 2025-11-28 14:46 | disposition home or self-care (01) ==
LOC: EDH 10:21
DX: R06.00 Dyspnea, unspecified (principal); E03.9 Hypothyroidism, unspecified; E78.00 Pure hypercholesterolemia, unspecified; J44.9 Chronic obstructive pulmonary disease, unspecified; I10 Essential (primary) hypertension; Z88.5 Allergy status to narcotic agent; Z88.1 Allergy status to other antibiotic agents; Z79.899 Other long term (current) drug therapy; Z79.1 Long term (current) use of non-steroidal anti-inflammatories (NSAID); Z79.01 Long term (current) use of anticoagulants; Z87.442 Personal history of urinary calculi; Z96.659 Presence of unspecified artificial knee joint; Z20.822 Contact with and (suspected) exposure to COVID-19
CPT/HCPCS: 99285; 96374; 71045; 87426; 80076; 84484; 80048; 83880; 85025; 85378; 87804 ×2; 36415; 93005; 94640; J3360